=== PATIENT | male | born 1930 | race Caucasian/White ===

== ENCOUNTER 2018-04-16 02:34 | Emergency (ER) | payer OTHER ==
[~2018-04-16] VITALS: Ht 193 cm; Wt 89.8 kg
[~2018-04-16 02:34] MED LIST: ACETAMINOPHEN-1 EAC1 PO; ACETAMINOPHEN325 M1 PO; ACYCLOVIR 800800 M1 PO; ADULT LOW DOSE81 MG PO; AMLODIPINE BESY10 MG PO; BACLOFEN 10 MG10 MG PO; BENAZEPRIL HCL40 MG PO; CIDAFLEX TABLE1 EACH PO; CITRATE OF MAG296 ML PO; COLACE100 MG PO; DESYREL100 MG PO; DESYREL50 MG PO; DIPHENHYDRAMINE25 M3 PO; FERRO-TIME325 MG PO; FINASTERIDE5 MG PO; FLEET ENEMA118 ML RC; FLORINEF ACETA0.1 MG PO; HYTRIN 5 M5 MG/1 CAP PO; LEVOTHYROXINE; MIRALAX; MIRALAX255 GM; MIRALAX255 GM PO; MULTIVITAMINS PO; NABUMETONE 500500 M1 PO; NEURONTIN 300300 M1 PO; PREDNISONE 5 MG5 M1 PO; PROSCAR 5MG TABL5 MG PO; PROZAC 10 MG CA10 MG PO; PROZAC 20 MG20 MG PO; ROBAXIN 750 MG750 M1 PO; SIMVASTATIN20 MG PO; SYNTHROID125 MCG PO; TAMSULOSIN HCL0.4 M1 PO; TRAMADOL 50 MG50 MG PO; TRAZODONE HCL PO; Zicam PO; [UNRECOGNIZED DRUG - OTHER] TOP
[2018-04-16 02:54] LABS: ABSOLUTE NEUTROPHILS 5.6 thou/uL (1.4-8.2); BASOPHILS 1.3 % (0.0-2.0); HEMATOCRIT 53.6 % (42.0-52.0); HEMOGLOBIN 18.1 gm/dL (14.0-18.0); LYMPHOCYTES 16.4 % (24.0-44.0); MCH 32.2 pg (26.0-34.0); MCHC 33.7 g/dL (28.0-37.0); MCV 95.5 fL (80.0-100.0); MONOCYTES 6.9 % (1.0-8.0); PLATELET COUNT 188 thou/uL (150-400); POLYS 74.4 % (36.0-66.0); RBC 5.61 mil/uL (4.50-6.00); RDW 13.5 % (10.5-14.5); WBC 7.5 thou/uL (4.0-11.0)
[2018-04-16 03:01] LABS: CALCIUM 9.2 mg/dL (8.5-10.1); CREATININE 1.3 mg/dL (0.7-1.3); POTASSIUM 3.4 mmol/L (3.5-5.1)
[2018-04-16 03:06] LABS: ALBUMIN 3.8 g/dL (3.4-5.0); DIRECT BILIRUBIN 0.2 mg/dL (<0.1-0.3); TOTAL BILIRUBIN 1.5 mg/dL (<0.1-1.0); TOTAL PROTEIN 7.3 g/dL (6.4-8.2)
[2018-04-16] MEDS ORDERED: AMLODIPINE BESY10 MG PO (03:44)
[2018-04-16] MEDS ORDERED: AVEED750 MG/3 M IM (03:46)
[2018-04-16] MEDS ORDERED: BENADRYL25 MG PO (03:47)
[2018-04-16] MEDS ORDERED: CYMBALTA60 MG PO (03:47)
[2018-04-16 06:35] VITALS: BP 155/87
== END 2018-04-16 06:57 | disposition home or self-care (01) ==
LOC: ER 02:34
PROVIDERS: Emergency Medicine
DX: R11.2 Nausea with vomiting, unspecified (principal); M79.2 Neuralgia and neuritis, unspecified; R10.30 Lower abdominal pain, unspecified; I10 Essential (primary) hypertension; Z79.899 Other long term (current) drug therapy

== ENCOUNTER 2019-05-16 06:51 | Inpatient (IN) | payer OTHER ==
[~2019-05-16] VITALS: Ht 193 cm; Wt 100.2 kg
[2019-05-16] VITALS (31 sets, daily range): BP systolic 112–153; BP diastolic 62–80
[~2019-05-16 06:51] MED LIST changes: +AVEED750 MG/3 M IM; +BENADRYL25 MG PO; +CYMBALTA60 MG PO
[2019-05-16] MEDS ORDERED: NORTRIPTYLINE H25 M3 PO (07:08)
[2019-05-16] MEDS ORDERED: NEURONTIN 300M300 M2 PO (07:09)
[2019-05-16] MEDS ORDERED: PROTONIX40 M2 PO (07:10)
[2019-05-16] MEDS ORDERED: OYSTER SHELL 51 EAC1 PO (07:10)
[2019-05-16] MEDS ORDERED: MUPIROCIN1 GM TOP (07:11)
[2019-05-16 07:18] LABS: URINE BILIRUBIN NEGATIVE (Negative); URINE BLOOD NEGATIVE (Negative); URINE CLARITY CLEAR; URINE COLOR YELLOW; URINE GLUCOSE-RANDOM* NEGATIVE (Negative); URINE KETONES TRACE (Negative); URINE LEUKOCYTES-REFLEX NEGATIVE (Negative); URINE NITRITE-REFLEX NEGATIVE (Negative); URINE PROTEIN (DIPSTICK) NEGATIVE (Negative); URINE SPECIFIC GRAVITY 1.025 (1.005-1.035); URINE UROBILINOGEN 0.2 E.U./dl (0.2-1.0)
[2019-05-16 07:20] LABS: ABSOLUTE NEUTROPHILS 6.5 thou/uL (1.4-8.2); BASOPHILS 0.6 % (0.0-2.0); EOSINOPHILS 0.6 % (0.0-3.0); HEMATOCRIT 53.2 % (42.0-52.0); HEMOGLOBIN 17.7 gm/dL (14.0-18.0); LYMPHOCYTES 12.3 % (24.0-44.0); MCH 32.4 pg (26.0-34.0); MCHC 33.2 g/dL (28.0-37.0); MCV 97.4 fL (80.0-100.0); MONOCYTES 1.5 % (1.0-8.0); PLATELET COUNT 202 thou/uL (150-400); RBC 5.47 mil/uL (4.50-6.00); WBC 7.6 thou/uL (4.0-11.0)
[2019-05-16 07:20] LABS: BE(vivo) 0.2 mmol/L (-2 to +3); HCO3 24.7 mmol/L (22.0-26.0); PCO2 39.8 mmHg (35.0-45.0); PO2 56.7 mmHg (80.0-100.0); pH 7.411 (7.360-7.450); sO2 89.9 % (92.0-98.0)
[2019-05-16 07:25] LABS: ANION GAP 10 mmol/L (7-16); BUN 30 mg/dL (7-18); CALCIUM 9.7 mg/dL (8.5-10.1); CHLORIDE 101 mmol/L (98-107); CO2 30 mmol/L (21-32); CREATININE 2.3 mg/dL (0.7-1.3); GLUCOSE 168 mg/dL (74-106); POTASSIUM 4.1 mmol/L (3.5-5.1); SODIUM 141 mmol/L (136-145)
[2019-05-16 07:35] LABS: ALBUMIN 3.9 g/dL (3.4-5.0); MAGNESIUM 1.6 mg/dL (1.8-2.4); SGOT 21 U/L (15-37); SGPT 25 U/L (30-65); TOTAL BILIRUBIN 1.5 mg/dL (<0.1-1.0); TOTAL PROTEIN 7.3 g/dL (6.4-8.2); TROPONIN-I <0.06 ng/mL (<0.06)
--- NOTE | 2019-05-16 09:42 | NUR ---
pt. aao x's 3. gcs-14. report provided to jackson martinez. transferred pt. to icu bed 247. assisted to icu waiting room per nurse preference. iv fluids maintenance running at 125 ml/hr. bolus infusing also. initial iv antibiotics given.
--- NOTE | 2019-05-16 14:59 | NUR ---
PATIENT ARRIVED FROM ED VIA CART. HE WAS THEN HELPED TO THE ICU BED WHERE HE WAS PLACED ON THE SENIOR TRIAL ATTORNEY. ADMISSION WAS PERFORMED. ANTIBIOTICS WERE INIATED. SEPSIS SCREENING PERFORMED. NURSE TALKED WITH DR. TANG, DR. BOLAÑOS, AND DR. DELGADO ABOUT THE POSITIVE SEPSIS SCREENING. PATIENT NOT ON SEPSIS PROTOCOL AT THIS TIME. IV ANTIBIOTICS ORDERED BY PRIMARY, THEN SWITCHED BY ID. LABS NOTED AND CALLED TO PRIMARY PHYSICIAN, WELL DR. BOLAÑOS. PATIENT TROPONIN LEVEL, MAG LEVEL, AND TSH/FREE T4 LEVEL CALLED TO PRIMARY. PATIENT DENIES PAIN. FAMILY AT BEDSIDE. NURSE TO CONTINUE TO MONITOR PATIENT STATUS. PATIENT SLOWLY PROGRESSING TOWARDS PLAN OF CARE. HOURLY URINE OUTPUT NOTED.
--- NOTE | 2019-05-16 18:49 | NUR ---
ASSUMED CARE OF PATIENT AT 1430. PT REMIANS ON 8L NC. RESTING COMFORTABLY IN BED THROUGH OUT THE SHIFT. CONSULT FOR SURGERY PLACED. DR. SILVA SAID THEY WILL SEE PATIENT. NO COMPLAINTS OF NAUSEA.
[2019-05-17] VITALS (26 sets, daily range): BP systolic 128–178; BP diastolic 54–90
--- NOTE | 2019-05-17 02:50 | NUR ---
HALDOL 2.5 MG IV GIVEN FOR RESTLESSNESS PER ORDER OVERHEAD FOREMAN Evelyn BUTTS
[2019-05-17 05:18] LABS: HEMATOCRIT 46.6 % (42.0-52.0); MCH 32.1 pg (26.0-34.0); MCHC 32.6 g/dL (28.0-37.0); MCV 98.4 fL (80.0-100.0); PLATELET COUNT 142 thou/uL (150-400); RBC 4.74 mil/uL (4.50-6.00); RDW 13.9 % (10.5-14.5); WBC 8.8 thou/uL (4.0-11.0)
[2019-05-17 05:19] LABS: HEMOGLOBIN 15.2 gm/dL (14.0-18.0)
[2019-05-17 05:41] LABS: ALBUMIN 2.9 g/dL (3.4-5.0); ANION GAP 10 mmol/L (7-16); BUN 31 mg/dL (7-18); CHLORIDE 106 mmol/L (98-107); CO2 28 mmol/L (21-32); CREATININE 1.8 mg/dL (0.7-1.3); GLUCOSE 136 mg/dL (74-106); POTASSIUM 4.3 mmol/L (3.5-5.1); SGOT 22 U/L (15-37); SGPT 19 U/L (30-65); SODIUM 144 mmol/L (136-145); TOTAL BILIRUBIN 1.3 mg/dL (<0.1-1.0); TOTAL PROTEIN 6.3 g/dL (6.4-8.2); TROPONIN-I <0.06 ng/mL (<0.06)
[2019-05-17 05:44] LABS: CALCIUM 7.6 mg/dL (8.5-10.1)
[2019-05-17 05:54] LABS: ABSOLUTE NEUTROPHILS 7.1 thou/uL (1.4-8.2); METAMYELOCYTES 6 %
--- NOTE | 2019-05-17 06:00 | NUR ---
PT IS CALM AND COOPERATIVE ALERT AND ORIENTED THIS AM. HAD ONE SOFT BROWN STOOL TONIGHT. 1000 CC UO THIS SHIFT. UP TO CHAIR X 2 TONIGHT. ABD IS MORE DISDTENDED THIS AM. DR LEMONS IN TO SEE PT. NO SURGERY REQUIRED at this time. WILL CONT TO MONITOR.
--- NOTE | 2019-05-17 16:24 | NUR ---
Case opened to follow for dc planning. Pt is currently in ICU. Respiratory Tech visited with the pt and his and dtr in [facility] at bedside. The pt and his report that they live in an indep living apt at [facility]. He is normally indep in the apt and he sets up his 's meds as well as his own. They have had hh per [facility] and would use them again if needed. He is familiar with [facility] as his was there. He reports he would not want to go there for SNF. Will ask for therapy evals. He does use a rwalker for long hallways or outtings. He reports his pcp is Dr. Sue Johnson. Cm role introduced. Will follow along for possible hh referral at sc.
--- NOTE | 2019-05-17 18:37 | NUR ---
UP IN CHAIR TODAY FOR SEVERAL HOURS, AMBULATED AROUND BED WITH ONE ASSIST, THEN BACK TO BED. SUPPOSITORY GIVEN, SEE MARS. NG 18FR PLACED IN R NARE ON FIRST ATTEMPT, POSITIVE AIR BOLUS, LIGHT GREEN PALE DRAINAGE, LWIS. KUB CONFIRMED NG PLACEMENT. UP TO BSC WITH ONE ASSIST, PASSED FLATUS AND HAD SCANT BROWN STOOL. AND JIKWAXAQ-RU-[id number] PRESENT. REQUESTED TO SPEAK WITH DR. WERNER. NOTIFED THEN ARRIVED SHORTLY TO UPDATED THEM ON PT CONDITION, INFORMED OF CODE STATUS OPTIONS.
--- NOTE | 2019-05-17 23:32 | NUR ---
ASSUMED CARE AT 1900. PT ALERT BUT CONFUSED/FORGETFUL. NG TUBE IN PLACE PULLING DARK GREEN LIQUID, HANSON DRAINING CLEAR YELLOW URINE. PT PLAYING WITH VARIOUS VS TUBING, TAKING O2 OFF DIFFICULT TO REDIRECT/REORIENT. ABOUT 2099 PT PULLED HIS NG TUBE OUT; WOULD NOT LEAVE O2 ON, O2 SAT DROPPING TO 88% ON RA. OBTAINED ORDER FOR HALDOL AND RESTRAINTS. PLACED IN RESTRAINTS, GAVE HALDOL, BUT PT STILL AGITATED AND PULLING AWAY, UNABLE TO REPLACE NG. OBTAINED ORDER FOR ANOTHER DOSE OF HALDOL. PT MORE CALM, ABLE TO PLACE NG; INITIAL LENGTH AT 66 CM, OBTAINED STAT KUB TO CONFIRM PLACEMENT. WILL CONTINUE TO MONITOR.
[2019-05-18] VITALS (19 sets, daily range): BP systolic 146–179; BP diastolic 77–104
[2019-05-18 09:11] LABS: HEMATOCRIT 44.6 % (42.0-52.0); HEMOGLOBIN 14.5 gm/dL (14.0-18.0); MCH 31.5 pg (26.0-34.0); MCHC 32.5 g/dL (28.0-37.0); MCV 96.9 fL (80.0-100.0); PLATELET COUNT 150 thou/uL (150-400); RBC 4.61 mil/uL (4.50-6.00); RDW 13.6 % (10.5-14.5); WBC 13.4 thou/uL (4.0-11.0)
[2019-05-18 09:32] LABS: CALCIUM 8.2 mg/dL (8.5-10.1); CREATININE 1.1 mg/dL (0.7-1.3); MAGNESIUM 1.8 mg/dL (1.8-2.4); PHOSPHORUS 1.9 mg/dL (2.5-4.9); POTASSIUM 3.5 mmol/L (3.5-5.1); TOTAL BILIRUBIN 1.1 mg/dL (<0.1-1.0); TOTAL PROTEIN 6.7 g/dL (6.4-8.2)
--- NOTE | 2019-05-18 10:09 | NUR ---
Nutrition: Pt admit with N/V x 24 hrs prior to admit, CAP, AIRAM, dehydration. Has NGT in place for decompression for PSBO. NPO day 3.. No recent weight loss, rather current weight up 20# from weight a year ago. Appears well nourished otherwise. Nsg voiced concern for possible nutrition support need in rounds. Due to no malnutrition identified, No nutrition support recommended unless NPO expected for a total of [address] will followup for timely diet advance next week.
--- NOTE | 2019-05-18 13:29 | NUR ---
Assumed care at 0700. PT appeared A&Ox4. Wrist restraints were present but not tied to the bed. Nurse took off the restraints completely as PT was cooperative and oriented. called and nurse spoke with her about PT's plan of care today. She verbalized understanding. NG tube was flushed and auscultated for placement. Appeared patent and draining reddish brown drainage. Provider notified. Dr. Ordonez, Kodi Way, and Bryan rounded on PT today. Diop is present as PT has hx of bladder cancer and retention. Urine is clear yellow and is draining well. New IV was inserted in the right lower forearm as more IV medications were ordered. PT tolerated procedure well. IV dressing was changed on the peripheral in the right AC space. IV appears patent. PT is currently sitting up in bed watching television. is visiting. Fall precautions in place. Nurse will continue to monitor.
[2019-05-18 13:38] LABS: ABSOLUTE NEUTROPHILS 12.1 thou/uL (1.4-8.2); ANISOCYTOSIS SLIGHT; METAMYELOCYTES 2 %
[2019-05-18 14:30] LABS: HEMATOCRIT 44.7 % (42.0-52.0); HEMOGLOBIN 14.8 gm/dL (14.0-18.0)
--- NOTE | 2019-05-18 14:58 | EKG ---
[address] [address] ELECTROCARDIOGRAM REPORT Name: NATHALIE BROWN Room #: 247-P ADM IN M.R.#: [id number] Admission: 05/16/19 Attend Phys: Greg Hendrickson MD Discharge: Date of : [birth year] Report #: [id number] THIS REPORT FOR: //name// [facility] ED Test Date: 2019-05-16 Test Time: 06:54:39 Pat Name: NATHALIE BROWN Department: Room: 247 Gender: M Shoulder Pad Molder: [facility] : 1930 Requested By: Greg Hendrickson Order Number: [id number] MD: Jayden Ferro Measurements Intervals [place] Rate: 137 P: AL: QRS: -16 QRSD: 153 T: 89 QT: 348 QTc: 526 Interpretive Statements Wide-QRS tachycardia Left bundle branch block Compared to ECG 06/10/2015 17:32:30 Left bundle-branch block now present Sinus rhythm no longer present ST (T wave) deviation no longer present Electronically Signed On 05-18-2019 14:57:37 DEHAIRER by Jayden Ferro [email or web address] <ELECTRONICALLY SIGNED> By: Jayden Ferro MD 05/18/19 1457 0654 [id number] Jayden Ferro MD /EPI
--- NOTE | 2019-05-18 14:59 | EKG ---
[address] [address] ELECTROCARDIOGRAM REPORT Name: NATHALIE BROWN Room #: 247-P ADM IN M.R.#: [id number] Admission: 05/16/19 Attend Phys: Greg Hendrickson MD Discharge: Date of : [birth year] Report #: [id number] THIS REPORT FOR: //name// [facility] Test Date: 2019-05-16 Test Time: 15:37:49 Pat Name: NATHALIE BROWN Department: Room: 247 Gender: M Grab Hooker: Omar GAYTAN : 1930 Requested By: Greg Hendrickson Order Number: [id number] MD: Jayden Ferro Measurements Intervals [place] Rate: 101 P: 45 [place]: 238 QRS: -11 QRSD: 98 T: 35 QT: 342 QTc: 444 Interpretive Statements Sinus tachycardia Prolonged [place] interval Probable left atrial enlargement Borderline T abnormalities, anterior leads Compared to ECG 06/10/2015 17:32:30 Electronically Signed On 05-18-2019 14:59:24 FURNITURE DELIVERY DRIVER by Jayden Ferro [email or web address] <ELECTRONICALLY SIGNED> By: Jayden Ferro MD 05/18/19 1459 153 36 Jayden Ferro MD /SIMIN
--- NOTE | 2019-05-18 19:25 | NUR ---
IN AFTERNOON, UP IN CHAIR AFTER BRIEF AMBULATION WITH PHYSICAL THERAPY. PT REPOSITIONED IN CHAIR FOR HIS COMFORT, THEN HE AMBULATED WITH WALKER AND 2 RN ASSIST WITH USE OF GAIT BELT. HE AMBULATED AROUND THE ICU DESK IN ICU X 2, THEN BACK TO BED. DOZED OFF TO SLEEP. AT 1805, REPORT GIVEN TO RUIZ MERCADO. PT TRANSFERRED TO TELE RM #351 PER WHEELCHAIR WITH CLOTHING AND TEXTILES TEACHER, 4L/NC AND ALL HIS BELONGINGS INCLUDING CELL PHONE AND POULTRY FARMER EGG. CALLED KIMANI, TO NOTIFY HER OF PT TRANSFER.
--- NOTE | 2019-05-18 19:56 | NUR ---
Reviewed and agree with Kiara Salguero RNleisure studies professor.
[2019-05-18 20:37] LABS: PHOSPHORUS 2.6 mg/dL (2.5-4.9); POTASSIUM 3.5 mmol/L (3.5-5.1)
[2019-05-19 00:14] VITALS: BP 165/87
--- NOTE | 2019-05-19 01:42 | NUR ---
pt had a moderate bm tonight, that was formed. he has not had any drainage from his low intermittent suction until 0100. pt pulled out his ng tune stating that he was ready to get his shower for the morning. redirected him and spoke with interventional nurse. ordered to leave out the ng tube, and give him haldol with a sip of water P.o. pt did swollowed the pill with ease and has not complained of any discomfort. he denies nausea or fullness. resting more quietly with ng out.
[2019-05-19 03:15] VITALS: BP 168/96
[2019-05-19 04:14] LABS: CREATININE 0.9 mg/dL (0.7-1.3); PHOSPHORUS 1.7 mg/dL (2.5-4.9); POTASSIUM 3.2 mmol/L (3.5-5.1)
--- NOTE | 2019-05-19 06:34 | NUR ---
CONTINUES TO PULL AT LINES AND TUBES HAD TO REPLACE THE SOFT BILATERAL WRIST RESTRAINTS. HE PULLED ON HIS URINARY CATHETER AND CAUSED DARK RED URINE. FLUSHED CATHETER. URINE DRAINING IN ADEQUATE AMOUNTS.
[2019-05-19 07:26] VITALS: BP 174/90
--- NOTE | 2019-05-19 08:58 | HC ---
[facility] [place] [address] CONSULTATION Name: NATHALIE BROWN Room #: 351-P ADM IN M.R.#: [id number] Admission: 05/16/19 Attend Phys: Greg Hendrickson MD Discharge: Date of : [birth year] Report #: [id number] THIS REPORT FOR: //name// CC: Nikko Hendrickson DATE OF SERVICE: 05/17/2019 ATTENDING PHYSICIAN: Dr. Hendrickson. CONSULTING PHYSICIAN: Dr. Steward. REASON FOR CONSULTATION: Possible small-bowel obstruction. ASSESSMENT: Possible small-bowel obstruction. RECOMMENDATIONS: 1. Thank you for the consultation. I will follow along. 2. This appears to be more of an ileus. The patient has diffuse small bowel distention on CT scan. 2. He has had return of bowel function overnight; however, he does have a very significant stomach and small bowel distention. Therefore, would continue to recommend bowel rest. 3. Suspect ileus due in part to suspected pneumonia as well as many other comorbidities. 4. Serial abdominal exams. 5. I will follow closely until resolution of abdominal symptoms. HISTORY OF PRESENT ILLNESS: The patient is a very pleasant 89-year-old gentleman recently hospitalized with pneumonia, who presents to the [facility] with worsening shortness of breath, generalized weakness, and altered mental status. He was recently hospitalized at another facility with aspiration pneumonia. While in the ER, a guided CT scan of the abdomen that demonstrated possible small-bowel obstruction. The patient did have a bowel movement overnight. He has not vomited. The bowel movement was moderate in volume. PAST MEDICAL HISTORY: 1. Hypertension. 2. Hypopituitarism. 3. Hypothyroidism. 4. Benign prostatic hypertrophy. 5. On Prednisone 5 mg daily. 6. GERD. PAST SURGICAL HISTORY: 1. Denies abdominal procedures. [facility] [address] [place] [address] CONSULTATION Name: NATHALIE BROWN Room #: 351-P [facility] IN M.R.#: [id number] Admission: 05/16/19 Attend Phys: Greg Hendrickson MD Discharge: Date of : [birth year] Report #: [id number] 2. Back surgery, laminectomy, on 01/06/2013. SOCIAL HISTORY: Denies use of alcohol, tobacco, or recreational drugs. FAMILY HISTORY: Unobtainable. REVIEW OF SYSTEMS: CONSTITUTIONAL: No fever. No chills. HEENT: Denies blurring of vision, double vision, headaches, hearing loss, sinus drainage or sore throat. Denies blurring of vision, double vision, headaches, hearing loss, sinus drainage or sore throat. CARDIOVASCULAR: Denies chest pain, palpitations, orthopnea or paroxysmal nocturnal dyspnea. RESPIRATORY: See above and below. GASTROINTESTINAL: See above and below. GENITOURINARY: Denies dysuria or hematuria or kidney stones. No urinary frequency, urgency or incontinence. Denies dysuria or hematuria or kidney stones. No urinary frequency, urgency or incontinence. MUSCULOSKELETAL: No joint pain. No muscle pain. NEUROLOGICAL: Denies tremor, stroke or seizure. Denies tremor, stroke or seizure. HEMATOLOGIC / LYMPHATICS: Denies easy bruising, easy bleeding or enlarged lymph nodes. SKIN: No rash or ulceration. ENDOCRINE: No heat or cold intolerance PSYCHIATRIC: Denies depression, anxiety, or schizophrenia. PHYSICAL EXAMINATION: VITAL SIGNS: Temperature 36.7, pulse 90, respiratory rate 14, blood pressure 131/78, pulse ox 95%. GENERAL: No apparent distress, alert and oriented x3. HEENT: PERRLA, EOMI, MMM, NCAT NECK: Supple. No LAD CARDIOVASCULAR: Regular rhythm and rate. Hemodynamically stable. Normal capillary refill. Regular rhythm and rate. Hemodynamically stable. Normal capillary refill. PULMONARY: Nonlabored. Clear to auscultation bilaterally ABDOMEN: Soft, very distended, no tenderness to palpation, no guarding/rebound/rigidity. No hernias appreciated. No surgical incisions appreciated. EXTREMITIES: Calves soft, nontender, no edema. SKIN: No rashes or bruises. PSYCHIATRIC: Normal mood and affect Normal mood and affect NEUROLOGICAL: Grossly intact. CN II-XII grossly intact. MUSCULOSKELETAL: 5/5 strength in upper extremities and lower extremities bilaterally [address] [address] CONSULTATION Name: NATHALIE BROWN ARIS Room #: 351-P ADM IN M.R.#: [id number] Admission: 05/16/19 Attend Phys: Greg Hendrickson MD Discharge: Date of : [birth year] Report #: [id number] LYMPHATICS: No cervical, inguinal, or supraclavicular lymphadenopathy. LABORATORY DATA: White blood count 8.8, hemoglobin 15.2, hematocrit 46.6, platelets 142. Sodium 144, potassium 4.3, creatinine 1.8, and glucose 136. IMAGING: Chest x-ray, impression: 1. Right lateral mid lung infiltrate consistent with focal pneumonitis/pneumonia within the inferior right upper lobe. No evidence of pneumothorax or significant pleural effusion. CT abdomen and pelvis, impression: 1. CT findings consistent with mild or at least partial small-bowel obstruction. No evidence of focal inflammatory mass, ascites or pneumoperitoneum or hemoperitoneum. 2. Patchy bibasilar dependent atelectasis/pneumonitis. 3. Coronary artery calcification. <ELECTRONICALLY SIGNED> By: Ajay Steward MD 05/19/19 0858 0828 0919 Ajay Steward MD /nt
[2019-05-19 11:23] VITALS: BP 164/76
[2019-05-19 15:04] LABS: HEMATOCRIT 47.3 % (42.0-52.0); HEMOGLOBIN 15.6 gm/dL (14.0-18.0)
[2019-05-19 15:24] VITALS: BP 167/73
--- NOTE | 2019-05-19 18:45 | NUR ---
RESTRAINTS TAKEN OFF AT 0800 THIS AM PATIENT WAS CALM AND COOPERATIVE WITH CARE. HE HAS BEEN THAT WAY ALL DAY. OCCASIONALLY HE WILL BE CONFUSED AND PULL ON PAPER BAG INSPECTOR BUT EASILY REDIRECTED. FAMILY HERE ALL DAY. WILL CONT WITH PLAN OF CARE.
[2019-05-19 19:25] VITALS: BP 151/73
[2019-05-20 03:15] VITALS: BP 171/93
--- NOTE | 2019-05-20 03:47 | NUR ---
PATIENT IS SLOWLY PROGRESSING IN HIS CARE PLAN. VITAL SIGNS STABLE WITH PATIENT HAVING NO COMPLAINTS OF PAIN OR NAUSEA. BLOOD PRESSURE ELEVATED WITH NURSE TREATING EFFECTIVELY TO PROVIDERS ORDER. PATIENT IS ALERT TIMES THREE AND IS PLEASANTLY CONFUSED AND FORGETFUL. HE HAS RESPONDED WELL TO NURSE RE DIRECTING HIM FROM PULLING AT CATHETER. ADEQUATE OUTPUT THROUGH HANSON WHICH HAS CLEARED UP SINCE EARLY SHIFT FLUSHES. PATIENT WAS ABLE TO AMBULATE THE HALLWAYS WITH ASSISTANCE INCIDENT FREE. BREATHING STABLE ON LOW LEVEL OXYGEN EVIDENCED BY ASSESSMENT AND SPOT OXYGENATION CHECKS. CONTINUE PLAN OF CARE.
[2019-05-20 06:55] VITALS: BP 176/89
[2019-05-20 09:16] LABS: HEMATOCRIT 46.6 % (42.0-52.0); HEMOGLOBIN 15.6 gm/dL (14.0-18.0); MCHC 33.4 g/dL (28.0-37.0); MCV 95.9 fL (80.0-100.0); PLATELET COUNT 145 thou/uL (150-400); RBC 4.85 mil/uL (4.50-6.00); RDW 13.7 % (10.5-14.5); WBC 9.7 thou/uL (4.0-11.0)
[2019-05-20 09:29] LABS: ALBUMIN 2.9 g/dL (3.4-5.0); CALCIUM 8.3 mg/dL (8.5-10.1); CREATININE 0.9 mg/dL (0.7-1.3); MAGNESIUM 2.3 mg/dL (1.8-2.4); POTASSIUM 3.2 mmol/L (3.5-5.1); TOTAL BILIRUBIN 0.9 mg/dL (<0.1-1.0); TOTAL PROTEIN 6.4 g/dL (6.4-8.2)
[2019-05-20 09:36] LABS: ABSOLUTE NEUTROPHILS 9.2 thou/uL (1.4-8.2); ANISOCYTOSIS 1+
[2019-05-20 09:37] LABS: LARGE PLATELETS FEW
[2019-05-20 10:56] VITALS: BP 179/100
--- NOTE | 2019-05-20 12:43 | HC ---
[facility] [place] [address] CONSULTATION Name: NATHALIE GRIFFITH Room #: 351-P [facility] IN M.R.#: [id number] Admission: 05/16/19 Attend Phys: Greg Hendrickson MD Discharge: Date of : [birth year] Report #: [id number] THIS REPORT FOR: //name// CC: Nikko Hendrickson DATE OF SERVICE: 05/16/2019 CONSULTATION: Infectious diseases. HISTORY OF PRESENT ILLNESS: Ruben Griffith is an 89-year-old gentleman who has been ill for about 2 days. At home, he was becoming weaker. During the night, he was noted to have fever with nausea, vomiting and then became dyspneic and confused. The patient was brought into the hospital and was noted to have a fever, bowel obstruction and infiltrates. The patient was started on broad-spectrum antibiotic therapy. Infectious Disease consultation was requested. PAST MEDICAL HISTORY: Significant for hypertension, bladder cancer, prostatic hypertrophy, renal insufficiency, pneumonia, hypothyroidism, hypopituitarism. PAST SURGICAL HISTORY: Includes appendectomy and laminectomy. CURRENT MEDICATION RECONCILIATION: Includes doses of vancomycin, azithromycin and Zosyn in the ER. He is now on meropenem. Other medications include Tylenol p.r.n., DuoNeb inhalation. Enteric coated aspirin 81 mg daily, Lovenox 30 mg daily, fentanyl push p.r.n., tamsulosin 0.4 mg daily, Neurontin 600 mg t.i.d., Solu-Cortef 100 mg IV every 8 hours, Synthroid 125 mcg daily, meropenem 1 g q.12 hours, nortriptyline 20 mg b.i.d., amlodipine 5 mg daily, Zofran 4 mg p.r.n., pantoprazole 40 mg b.i.d., Proscar 5 mg at bedtime. ALLERGIES: The patient has no documented drug allergies. FAMILY HISTORY: Noncontributory. SOCIAL HISTORY: The patient is and lives at home with his . 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 He did smoke cigarettes in the distant past, but quit 60 years ago. No history of alcohol nor drugs. REVIEW OF SYSTEMS: At this time, the patient says he feels pretty good. Denies any pain. Denies any head or neck complaints. He does not feel confused or like his mental status is depressed. He denies cough, chest pain, shortness of breath, dyspnea. Denies angina, syncope, palpitation. He denies nausea and vomiting, although he did apparently have several emesis during the night. He denies abdominal pain. He says his last bowel movement was yesterday and he [address] [address] CONSULTATION Name: NATHALIE GRIFFITH Room #: 351-P [facility] IN M.R.#: [id number] Admission: 05/16/19 Attend Phys: Greg Hendrickson MD Discharge: Date of : [birth year]/12/[birth year] Report #: [id number] thinks it was normal. Denies any urinary complaints, although he has a Diop catheter currently. Denies pain in his extremities. PHYSICAL EXAMINATION: GENERAL: The patient appears his stated age, weak, ill, but comfortable, not in any distress. VITAL SIGNS: Show temperature was measured in the ER at 102.4. Blood pressure 121/66. SKIN: Somewhat pale without rash, lesion or exanthem. ENT: Negative. There is a small 5 mm crust above his right eye consistent with a fairly recent trauma. Oral cavity is normal. NECK: Supple. NEUROLOGIC: Mentally, the patient is awake and answers questions. He knows he is in the hospital. He knows that Nathalie Bowling is president and he does not like him. He did not realize today was or he could not name the hospital. HEART: Sounds S1, S2. LUNGS: Clear to anterior auscultation. ABDOMEN: Distended, but soft without tenderness nor rebound. Bowel sounds are hypoactive. EXTREMITIES: Unremarkable. LABORATORY DATA: White count is 7.6, hemoglobin 17.7, platelet 202,000. Electrolytes normal, BUN 30, creatinine 2.3. Blood gases on 15 liter nonrebreather mask this morning showed pH of 7.41, pO2 of 57, pCO2 of 39. Now on 10 liters of nasal cannula, his oxygen saturation is 96%. The lactate was initially 4.3 and 3.07 on followup. Procalcitonin elevated at 0.18. BNP, troponin, T4 levels were normal. TSH was low. Imaging studies showed that the chest x-ray demonstrated a right upper lobe and a right mid infiltrate. CT of the abdomen confirmed atelectasis or infiltrates in both bases. There is diffuse calcification of multiple arteries including coronary arteries. There was mild bilateral perinephric stranding. The gut suggested a small-bowel obstruction. Urinalysis was negative. ASSESSMENT AND PLAN: In summary, we have an elderly gentleman who was usually in pretty good health, has a few days of being ill and he presents with fever, nausea, vomiting, possible bowel obstruction and infiltrates on his chest x-ray. I suspect that the patient probably has pneumonia or possibly aspiration related to some underlying GI disease. I suggest we treat for possible abdominal sepsis or aspiration pneumonia. We can do this with meropenem as a single drug. Dose is adjusted for his creatinine elevation. We need to check a random cortisol from when the patient came in the hospital. He currently is on cortisone support. We can check urinary antigens. There is no sputum for culture, but should the patient [facility] [address] [place] [address] CONSULTATION Name: NATHALIE GRIFFITH ARIS Room #: 351-P ADM IN M.R.#: [id number] Admission: 05/16/19 Attend Phys: Greg Hendrickson MD Discharge: Date of : [birth year]12/[birth year] Report #: [id number] develop a productive cough for this would be helpful. Tomorrow, we will want to do followup CBC, electrolytes, a chest x-ray and abdominal film. I think it may be worthwhile to have a surgeon evaluate and comment on the abdominal distention. The patient may potentially benefit from an NG tube, particularly if he develops for nausea. For now, we will continue the patient on the meropenem and supportive therapy. I appreciate the opportunity of input in the care of this pleasant family. Dr. Miguel Ángel Mohamud will return tomorrow for a further infectious disease followup. <ELECTRONICALLY SIGNED> By: Escobar Witt MD 05/20/19 1243 1250 1325 Escobar Witt MD /nt
[2019-05-20 13:41] LABS: HEMATOCRIT 45.7 % (42.0-52.0)
[2019-05-20 15:24] VITALS: BP 184/99
[2019-05-20 16:38] VITALS: BP 177/91
[2019-05-20 19:24] VITALS: BP 171/84
--- NOTE | 2019-05-20 19:33 | NUR ---
pt is A&OX2 ( person and place), but pt is forgetful, pt is continuing NPO and PPN at 80ml/hr, pt is is on 02 3L/min/nc, pt's vs and o2sat are stable, pt has low Potassium replacement,
[2019-05-21 03:00] VITALS: BP 186/109
[2019-05-21 05:53] LABS: CALCIUM 8.2 mg/dL (8.5-10.1); CREATININE 0.8 mg/dL (0.7-1.3); MAGNESIUM 2.2 mg/dL (1.8-2.4); PHOSPHORUS 2.7 mg/dL (2.5-4.9); POTASSIUM 3.4 mmol/L (3.5-5.1)
[2019-05-21 07:42] VITALS: BP 184/100
--- NOTE | 2019-05-21 08:49 | NUR ---
1) If unable to progress in diet stages in the next 24-48 hrs based on bowel distention, recommend change to standard TPN. 2) If oral intake not yet indicated, consider change to standard TPN at goal rate of 90 ml/hr w/ 2.9% lipids to help meet nutrition needs. DIR= 2.24 mg/kg/min (safe per [facility]EN). 3) If inflammation a concern, recommend standard TPN w/ NO lipids x 1 wk and slightly higher goal rate at 100 ml/hr. Safe DIR = 2.49 mg/kg/min.
[2019-05-21 14:00] VITALS: BP 177/90
[2019-05-21 15:33] VITALS: BP 200/105
--- NOTE | 2019-05-21 15:43 | NUR ---
BILLY reviewed chart and spoke with nursing and attending physician. Pt was transferred to 3W from ICU over the weekend and is progressing towards goals for discharge. Consult for [facility] ordered. BILLY discussed case with [facility] music rehabilitation therapist, who states they are able to accept pt when he is medically stable. BILLY met with pt, and son at bedside to provide update. All appear to be agreeable with plan to [facility]. Pt's states that she would like to hear more about [facility] tomorrow. BILLY requested [facility] music rehabilitation therapist to meet with pt and tomorrow. BILLY is following to assist as needed with discharge planning.
[2019-05-21 16:08] VITALS: BP 180/83
--- NOTE | 2019-05-21 16:51 | NUR ---
PT is A&OX2 ( PERSON AND PLACE), PT IS CONTIUING PPN @80ML/HR AND NPO , PT'S ABD IS DISTENDED , BUT SOFT , PT DENIES N/V AND ABD PAIN, PT HAS DONEX-RAY SMALL BOWEL SERIES , RN HAS CALLED DR TO REPORT ABNORMAL LAB RESULTS AND HIGH BP , NEW ORDER RECEIVED, PT WILL TRANSFER TO 4W ROOM 451 SOON ORDER.RN WILL GIVE BEDSIDE REPORT .
[2019-05-21 20:26] VITALS: BP 160/90
[2019-05-22 00:11] VITALS: BP 169/96
--- NOTE | 2019-05-22 03:38 | NUR ---
PT IS A TRANSFER FROM WITH C/O PNEUMONIA.PT IS A/O X3 AND CONFUSE AT TIMES.PT IS UP WITH X1 ASIST.PT HAS A HANSON CATHETER IN PLACE.PT IS NPO WITH ICE CHIPS AND SIPS OF FLUID WITH MEDS.PT BECAME CONFUSED THIS MORNING AND PULLED OUT IV TWICE AND TRYING PULLING OUT CATHTER.NEW IV ACCESS ON LT FA WITH PPN AT 80 CC/HR.WILL CONTINUE POC TILL EOS
[2019-05-22 07:25] VITALS: BP 178/88
[2019-05-22 10:03] LABS: HEMATOCRIT 48.2 % (42.0-52.0); HEMOGLOBIN 15.7 gm/dL (14.0-18.0); MCH 31.6 pg (26.0-34.0); MCHC 32.7 g/dL (28.0-37.0); MCV 96.7 fL (80.0-100.0); RBC 4.98 mil/uL (4.50-6.00); RDW 14.2 % (10.5-14.5); WBC 10.3 thou/uL (4.0-11.0)
[2019-05-22 10:17] LABS: CALCIUM 8.2 mg/dL (8.5-10.1); CREATININE 0.8 mg/dL (0.7-1.3); POTASSIUM 3.3 mmol/L (3.5-5.1)
[2019-05-22 14:15] VITALS: BP 174/97
--- NOTE | 2019-05-22 15:27 | NUR ---
CM MET WITH PT AND FAMILY AT BEDSIDE THIS DAY THE ARE AWARE THAT [facility] IS FOLLOWING AND THAT WE ANTICAPTE DC LIKELY TUESDAY. CM TO FOLLOW INDICATED WITH DC PLANNING.
--- NOTE | 2019-05-22 16:21 | NUR ---
Assumed patient care at 0715. Vital signs have been stable. Patient was advanced to a Clear Liquid Diet. Patient has been enjoying jello, Sprite, broth and ice chips. Patient has not had a bowel movement yet today. He continues on PPN and IV Antibiotics. Oxygen is at 3 Liters per nasal cannula. Family has been at bedside throughout the day. Patient has not displayed any confusion, has not been pulling at his kidd and/or IV. He has good urinary output in his catheter. Will continue to monitor.
[2019-05-22 19:08] VITALS: BP 168/86
--- NOTE | 2019-05-23 05:36 | NUR ---
Pt. rested quietly at intervals during the night when checked on during frequent rounds. He has been alert and oriented, but forgetful. Pt. attempted to get up out of bed times two without calling for assistance. Bed alarm is on. He has been taking po fluids well without difficulty. No BM this shift.
[2019-05-23 06:18] LABS: HEMATOCRIT 48.5 % (42.0-52.0); HEMOGLOBIN 15.7 gm/dL (14.0-18.0); MCH 32.2 pg (26.0-34.0); MCHC 32.4 g/dL (28.0-37.0); MCV 99.6 fL (80.0-100.0); RBC 4.87 mil/uL (4.50-6.00); RDW 14.2 % (10.5-14.5); WBC 9.2 thou/uL (4.0-11.0)
[2019-05-23 06:36] LABS: ALBUMIN 2.6 g/dL (3.4-5.0); CALCIUM 8.5 mg/dL (8.5-10.1); CREATININE 0.8 mg/dL (0.7-1.3); POTASSIUM 4.1 mmol/L (3.5-5.1); TOTAL BILIRUBIN 2.1 mg/dL (<0.1-1.0); TOTAL PROTEIN 5.9 g/dL (6.4-8.2)
[2019-05-23 08:00] VITALS: BP 173/87
[2019-05-23 15:00] VITALS: BP 161/71
--- NOTE | 2019-05-23 17:04 | NUR ---
Assumed pt care this am, pt is forgetful and needs to be reminded of the procedure cori (EGD), consnt has been signed family (son and ) came to visit and ia aware, Pt has a BM today after suppository was given. PPN and IV medication is tolerated well, clear liquid diet observed. To be NPO post midnight tonight for the procedure cori am. 3L O2 via NC on, stayed on the recliner in the afternoon. POC follwed, no signs or verbalizations of distrtess have been noted.
[2019-05-23 19:08] VITALS: BP 159/81
--- NOTE | 2019-05-23 22:30 | NUR ---
Pt. peripheral iv to left forarm infiltrated. Many attempts tried to restart another peripheral iv without sucess by this nurse and three others. commissary production supervisor was able to start a peripheral line, but fear that it would not hold overnight with ppn and then iv antibiotics too running. Suggest that the HYDROSTATIC TESTER be called and notified. Called and spoke to Key SALINAS about this and she gave orders to hold ppn for now. May consider talking to the in am about a picc line.
[2019-05-24 05:26] LABS: HEMATOCRIT 44.9 % (42.0-52.0); MCHC 33.3 g/dL (28.0-37.0); MCV 95.9 fL (80.0-100.0); RBC 4.68 mil/uL (4.50-6.00); RDW 13.7 % (10.5-14.5); WBC 9.9 thou/uL (4.0-11.0)
--- NOTE | 2019-05-24 05:46 | NUR ---
Pt. rested quietly at intervals during the night when checked on during frequent rounds. He offers no complaints of pain. Bed alarm is on.
[2019-05-24 06:06] LABS: ALBUMIN 2.3 g/dL (3.4-5.0); CALCIUM 7.9 mg/dL (8.5-10.1); CREATININE 0.9 mg/dL (0.7-1.3); DIRECT BILIRUBIN 0.2 mg/dL (<0.1-0.2); POTASSIUM 3.4 mmol/L (3.5-5.1); TOTAL BILIRUBIN 1.6 mg/dL (<0.1-1.0); TOTAL PROTEIN 5.3 g/dL (6.4-8.2)
[2019-05-24 07:39] VITALS: BP 144/62
[2019-05-24] MEDS ORDERED: LOPRESSOR25 PO (12:33)
[2019-05-24] MEDS ORDERED: IPRAT-ALBUT 0.5-3 ML INH (12:33)
[2019-05-24] MEDS ORDERED: NORVASC10 MG PO (12:34)
[2019-05-24] MEDS ORDERED: OLANZAPINE2.5 MG PO (12:34)
[2019-05-24] MEDS ORDERED: BISACODYL10 MG RECTAL (12:34)
[2019-05-24] MEDS ORDERED: SENNA-TIME S T1 EACH PO (12:35)
[2019-05-24] MEDS ORDERED: MIRALAX17 GM PO (12:35)
[2019-05-24] MEDS ORDERED: AUGMENTIN 875-1 EACH PO (12:37)
[2019-05-24 15:46] VITALS: BP 143/72
--- NOTE | 2019-05-24 19:42 | NUR ---
Assumed pt care this am. VS have been stable. Diet of full liquids and medications are well tolerated. Went down for EGD but this was cancelled as per OR, discussion between Dr. Lincoln done. When pt came back , got upsert, informed Dr. Esqueda who spoke to the family. FC removerd pt was able to void using the urinal. POC followed no signs or verbalizatuons of distress have been noted. Pt is to transfer to 5N (rehab) 514 report given but room is not available will call back when room is ready informed the night nurse.
--- NOTE | 2019-05-24 22:08 | NUR ---
ASSUMED CARE OF PT AT 1900HRS. PT IS AO AND LETS NEEDS BE KNOWN. ASSESSMENT CHARTED. HS MEDS GIVEN. VSS AND NO S/S OF ACUTE DISTRESS. HANSON REMOVED TODAY. POST VOIF RESIDUAL AT 171ML. PT TRANSFERRED TO 5N AT 2200HRS.
--- NOTE | 2019-05-25 11:11 | HC ---
[facility] [place] [address] CONSULTATION Name: NATHALIE BROWN Room #: 451-P [facility] IN M.R.#: [id number] Admission: 05/16/19 Attend Phys: Greg Hendrickson MD Discharge: 05/24/19 Date of : [birth year] Report #: [id number] THIS REPORT FOR: //name// CC: Nikko Hendrickson DATE OF SERVICE: 05/21/2019 HISTORY OF PRESENT ILLNESS: The patient an 89-year-old white male admitted with increased shortness of breath and, mental status changes. He was noted to have sepsis with pneumonia, acute hypoxic hypercapnic respiratory failure, toxic metabolic encephalopathy. He is noted to have a partial small-bowel obstruction. NG tube was placed. He has had problems with sundowning and he actually pulled his NG tube. He is currently on PPN and is n.p.o. He has been treated for acute renal insufficiency. He is noted to have right mid lung pneumonia and there is concern regarding dysphagia. He also has a history of hypopituitarism. We are seeing him in rehabilitation medicine consultation. PAST MEDICAL HISTORY: Prior medical history includes back surgery in 2012, which was a laminectomy. History of hypertension, hypopituitarism, hypothyroidism. His past medical history also includes bladder cancer, chronic kidney disease, neuropathic pain. MEDICATIONS: Please see the full medication listing. ALLERGIES: No known drug allergies. HABITS: Former tobacco abuse, quit greater than a year ago. No history of alcohol abuse. SOCIAL HISTORY: Lives in an assisted living facility. Premorbid walker ambulator. was noted to find him on the floor, apparently had a recent stay at [facility] prior to coming here to [facility]. REVIEW OF SYSTEMS: No current complaints of chest pain, shortness of breath or abdominal discomfort. PHYSICAL EXAMINATION: GENERAL: An 89-year-old white male in no obvious distress. VITAL SIGNS: Last recorded temperature 97.6, pulse 72, respirations 16, blood pressure 184/100. NEUROLOGIC: The patient is alert. He will follow basic 1 step commands. He could tell me the place, had some difficulty with the year. HEENT: Facies appeared symmetric. EXTREMITIES: Functional range of motion of both upper extremities. Strength is [facility] [address] [place] [address] CONSULTATION Name: NATHALIE BROWN [place] Room #: 451-P [facility] IN M.R.#: [id number] Admission: 05/16/19 Attend Phys: Greg Hendrickson MD Discharge: 05/24/19 Date of : [birth year] Report #: [id number] grade 4- to 3+/5. DTRs are trace to 1. Lower extremities, no focal calf swelling, functional range of motion, strength is grade 3+ to 4-/5. He last worked in physical therapy at a min assist level with sit to stand. Gait was min assist 10 feet without an assistive device. He currently is on PPN. Nasal prong O2. Indwelling Diop catheter and is n.p.o. ASSESSMENT: An 89-year-old white male with the following problem list: 1. Toxic metabolic encephalopathy. He has had some owning. Restraints were removed yesterday. NG tube is currently out. 2. Ileus versus partial small-bowel obstruction. Currently on PPN and the patient continues n.p.o. 3. Sepsis. 4. Pneumonia, right mid lung infiltrate. 5. Acute hypercapnic hypoxemic respiratory failure. 6. Acute renal insufficiency. 7. Hypopituitarism. PLAN: Therapy evaluations are continuing. The patient continues n.p.o. and on PPN. At this point, we will need to follow along as he further medically stabilizes. Would anticipate that he should be a good [address] [place] [address] inpatient rehabilitation candidate as he further medically improves. We will be glad to follow along with you. <ELECTRONICALLY SIGNED> By: Abran Orozco MD 05/25/19 1111 [id number] Abran Orozco MD /nt
== END 2019-05-24 22:00 | DRG 871 ==
LOC: ER 06:51 → ICU 08:04 → 3W 08:04 → EROBS 08:04 → ICU 10:42 → 3W 05-18 19:43 → 4W 05-21 19:17
PROVIDERS: Emergency Medicine; Hospitalist; Internal Medicine; Internal Medicine Infectious Disease; Nurse Practitioner; Specialist; ADMIT Internal Medicine
DX: A41.9 Sepsis, unspecified organism (principal); J96.01 Acute respiratory failure with hypoxia; J69.0 Pneumonitis due to inhalation of food and vomit; G92 Toxic encephalopathy; J96.02 Acute respiratory failure with hypercapnia; N17.9 Acute kidney failure, unspecified; E23.0 Hypopituitarism; K56.609 Unspecified intestinal obstruction, unspecified as to partial versus complete obstruction; K92.2 Gastrointestinal hemorrhage, unspecified; G62.9 Polyneuropathy, unspecified; E03.9 Hypothyroidism, unspecified; C67.9 Malignant neoplasm of bladder, unspecified; I12.9 Hypertensive chronic kidney disease with stage 1 through stage 4 chronic kidney disease, or unspecified chronic kidney disease; E86.0 Dehydration; N18.9 Chronic kidney disease, unspecified; N40.0 Benign prostatic hyperplasia without lower urinary tract symptoms; K21.9 Gastro-esophageal reflux disease without esophagitis; I25.10 Atherosclerotic heart disease of native coronary artery without angina pectoris; R65.20 Severe sepsis without septic shock; E83.39 Other disorders of phosphorus metabolism; E83.42 Hypomagnesemia; E87.6 Hypokalemia; R31.9 Hematuria, unspecified; R94.5 Abnormal results of liver function studies; G31.84 Mild cognitive impairment of uncertain or unknown etiology; Z87.01 Personal history of pneumonia (recurrent); Z90.89 Acquired absence of other organs; Z79.82 Long term (current) use of aspirin; Z79.899 Other long term (current) drug therapy; Z87.891 Personal history of nicotine dependence; Z98.1 Arthrodesis status; Z23 Encounter for immunization
CPT/HCPCS: 10047; 10078; 10779; 10879

== ENCOUNTER 2019-05-24 15:51 | Inpatient (IN) | payer OTHER ==
[~2019-05-24] VITALS: Ht 193 cm; Wt 108.4 kg
[~2019-05-24 15:51] MED LIST changes: +AUGMENTIN 875-1 EACH PO; +BISACODYL10 MG RECTAL; +IPRAT-ALBUT 0.5-3 ML INH; +LOPRESSOR25 PO; +MIRALAX17 GM PO; +MUPIROCIN1 GM TOP; +NEURONTIN 300M300 M2 PO; +NORTRIPTYLINE H25 M3 PO; +NORVASC10 MG PO; +OLANZAPINE2.5 MG PO; +OYSTER SHELL 51 EAC1 PO; +PROTONIX40 M2 PO; +SENNA-TIME S T1 EACH PO
[2019-05-24 22:05] VITALS: BP 162/90
--- NOTE | 2019-05-25 00:29 | NUR ---
PT ADMITTED TO 5N THIS EVENING. PT ADMIT HX AND ASSESSMENT COMPLETED. VSS. SAT WNL ON 3L NC. PT VERY WEAK. UP TO BSC WITH 2 ASST/GAIT/WALKER. LOOSE STOOLS. URINAL AT BEDSIDE. FALL PRECAUTIONS IN PLACE. ASST WITH REPOSITION FOR COMFORT. PRIOR FLOOR RN GAVE ALL HS MEDS BEFORE BRINGING PT TO THE FLOOR. SLEEPING WELL AT THIS TIME. WILL CONTINUE TO MONITOR FREQUENTLY. BOTTOM RED. Z GUARD APPLIED.
[2019-05-25 05:08] LABS: HEMATOCRIT 44.6 % (42.0-52.0); HEMOGLOBIN 14.9 gm/dL (14.0-18.0); MCH 32.2 pg (26.0-34.0); MCHC 33.4 g/dL (28.0-37.0); MCV 96.4 fL (80.0-100.0); RBC 4.62 mil/uL (4.50-6.00); RDW 13.9 % (10.5-14.5); WBC 9.5 thou/uL (4.0-11.0)
[2019-05-25 05:21] LABS: CALCIUM 8.2 mg/dL (8.5-10.1); POTASSIUM 3.8 mmol/L (3.5-5.1)
[2019-05-25 08:00] VITALS: BP 156/78
--- NOTE | 2019-05-25 08:13 | NUR ---
PT GETTING UP ON HIS OWN. IMPULSIVE. FORGETTING TO CALL WHEN HE NEEDED TO GO TO THE BATHROOM.
--- NOTE | 2019-05-25 09:46 | NUR ---
chart review, pt up sitting on edge of bed, working with ot. noted pt on 02 per nc, " no home oxygen"/don. intro to cm, dcp, and team meeting. will cont following as needed for dc needs.
--- NOTE | 2019-05-25 13:44 | EKG ---
[address] [place] [address] ELECTROCARDIOGRAM REPORT Name: NATHALIE BROWN Room #: 514-P ADM IN M.R.#: [id number] Admission: 05/24/19 Attend Phys: Abran Orozco MD Discharge: Date of : [birth year] Report #: [id number] THIS REPORT FOR: //name// [facility] Test Date: 2019-05-25 Test Time: 08:26:24 Pat Name: NATHALIE BROWN Department: Room: 514 P Gender: M Powder Operator: Chery ROSE : 1930 Requested By: Abran Orozco Order Number: [id number] MD: Juanito Vu Measurements Intervals [place] Rate: 60 P: 66 TN: 161 QRS: -6 QRSD: 93 T: 6 QT: 424 QTc: 424 Interpretive Statements Sinus rhythm Abnormal R-wave progression, early transition Compared to ECG 05/16/2019 15:37:49 Sinus tachycardia no longer present First degree AV block no longer present Electronically Signed On 05-25-2019 13:43:49 DOOR PATCHER by Juanito Vu [email or web address] <ELECTRONICALLY SIGNED> By: Juanito Vu MD, [facility] 05/25/19 1343 0826 5 Juanito Vu MD, [facility] /EPI
--- NOTE | 2019-05-25 18:27 | NUR ---
ASSUMED CARE AT 0700, PT A&O X 3 BUT CAN BE IMPULSIVE AND FORGETFUL. VS STABLE, O2 ON 2L VIA NC. DENIES PAIN, MAX ASSIST X 1, TOLERATED THERAPY. MEDS WHOLE IN APPLESAUCE, TOLERATED WELL. PT WAS NPO FOR CT SCAN, PROCEDURE COMPLETE AWATING RESULTS. IV TO ESVIN, FLUSHES WELL. BG ACHS, MULTIPLE BM'S TODAY, VOIDED USING URINAL, CLEAR YELLOW URINE NOTED. BED IN LOWEST POSITION, CALL LIGHT WITHIN REACH, WILL CONTINUE TO MONITOR PER POC.
[2019-05-25 19:55] VITALS: BP 135/77
--- NOTE | 2019-05-26 05:00 | NUR ---
UP TO TOILET WITH WALKER AND GAITBELT, STANDBY ASSIST. ENCOURAGED TO CALL FOR ASSIST. HAS BEEN SETTING OFF BED ALARM IN SLOW PROCESS OF SITTING UP TOWARDS GETTING OUT OF BED. SMALL BM TWICE OVERNIGHT. Z-GUARD TO BUTTOCK, TURNED TO SIDE TWICE, INSISTS ON WEARING BRIEF HE DOES AT HOME, ESPECIALLY NOW WHILE HIS BOWELS ARE LOOSE.
[2019-05-26 06:44] LABS: ALBUMIN 2.6 g/dL (3.4-5.0); DIRECT BILIRUBIN 0.2 mg/dL (<0.1-0.2); TOTAL BILIRUBIN 1.1 mg/dL (<0.1-1.0); TOTAL PROTEIN 5.5 g/dL (6.4-8.2)
[2019-05-26 07:45] VITALS: BP 129/60
[2019-05-26 20:00] VITALS: BP 138/62
--- NOTE | 2019-05-27 04:55 | NUR ---
EPISODE OF INCONTINENT BOWEL AND BLADDER. Z-GUARD TO REDDENED BUTTOCKS. TURNING SELF. HS ACCUCHECK = 124. O2 2L OVERNIGHT ON SINCE 194 VS CAUGHT PATIENT WITH O2 SAT OF 88% ON ROOM AIR. PLEASANT AND REMEMBERING NAMES OF STAFF MEMBERS
[2019-05-27 08:20] VITALS: BP 154/81
--- NOTE | 2019-05-27 15:29 | NUR ---
ASSUMED CARE AT 0700, PT A&O X 4, NO ACUTE DISTRESS DURING SHIFT, AT BEDSIDE. VS STABLE, O2 ON 3L VIA NC. PT DENIES ANY PAIN, IV TO ESVIN STATLOCK. BG ACHS, TOLERATES MEDS WHOLE WITH APPLESAUCE. MAX ASSIST X 1 WITH TRANSFERS. LAST BM 05/27/19, VOIDS VIA URINAL, INCONTINENT AT TIMES. BED IN LOWEST POSITION, CALL LIGHT WITHIN REACH, WILL CONTINUE TO MONITOR PER POC.
[2019-05-27 19:34] VITALS: BP 142/66
--- NOTE | 2019-05-28 02:32 | NUR ---
assumed care at approx 1900 evening 05/27. pt lying in bed with head of bed elevated dozing off and on at change of shift. pt wearing brief incontinent of urine and also up to bathroom to void. up with 1 assist with walker. pt forgetful and impulsive at times. 02 at 2l per n/c. pt took hs meds with applesauce tolerating well. pt appears to be sleeping soundly between bathroom breaks. bed alarm on and call light in reach. will continue to monitor.
[2019-05-28 10:17] VITALS: BP 134/66
[2019-05-28 19:24] VITALS: BP 138/64
--- NOTE | 2019-05-28 19:54 | NUR ---
ASSUMED CARE AT 0700, REPORTS SLEPT GOOD LAST NIGHT. PT A&O X 4, LITTLE [place] DEE-NI'. AT BEDSIDE THIS EVENING. VS STABLE, O2 ON 2L VIA NC THIS AM. ENCOURAGED DEEP BREATH, WEAN OFF OXYGEN. SAT 97% ON RA. SOB WITH EXERTION AT TIME. WILL CONTINUE TO MONITOR. PT DENIES ANY PAIN, IV TO ESVIN STATLOCK. BG ACHS ON PREDNISONE. NOTIFIED LUCY IF PT CAN BE BLOOD SUGAR CHECK DAILY SINCE BS HAS BEEN STABLE. MEDS GIVEN WHOLE WITH APPLESAUCE. MIN ASSIST X 1 WITH A WALKER. PT HAS BEEN WALKING TO DINNING ROOM FOR MEALS. BUTTOCK LITTLE REDNESS INTACT, ENCOURAGED PT TO LAY ON SIDE WHEN IN BED. HAD LARGE FORMED BM 05/27/19, VOIDS VIA URINAL HAD 1100CC YELLOW URINE FOR THIS SHIFT. BS PRESENT. ON LAXATIVES. NOTED PT WILL HAVE XRAY ABED TO R/O ILEUS TOMORROW. GAVE REPORT TO NIGHT NURSE TO CONTINUE TO MONITOR. FALL PRECAUTION IN PLACE. CALL LIGHT WITHIN REACH.
--- NOTE | 2019-05-29 03:08 | NUR ---
ASSUMED CARE FROM DAY SHIFT PT AWAKE VISITING WITH AND FRIEND. DISUCUSS PLAN OF CARE AND VOICED UNDERSTANDING. PT VOIDED 600 ML OF CLEAR YELLOW UIRNE. PT INCONINTENT OF STOOL AND URINE DURING THE NIGHT, PT STATES HE WAS NOT AWARE. OTHERWISE PT RESTED WELL THROUGHOUT HOURLY ROUNDS. WILL CONITNUE WITH CURRENT PLAN OF CARE AND WILL REPORT CHANGES OR ABNORMAL FINDINGS.
[2019-05-29 06:25] LABS: ALBUMIN 2.6 g/dL (3.4-5.0); DIRECT BILIRUBIN 0.1 mg/dL (<0.1-0.2); TOTAL BILIRUBIN 0.6 mg/dL (<0.1-1.0); TOTAL PROTEIN 5.7 g/dL (6.4-8.2)
[2019-05-29 10:07] VITALS: BP 111/68
--- NOTE | 2019-05-29 10:26 | NUR ---
ASSUMED CARE AT 0700. PAITENT IS ALERT AND ORIENTEDX4. PATIENT UGALDE'S, MACHINIST SUPERVISOR ARE EQUAL. LUNGS ARE CLEAR. ABD IS SOFT WITH BSX4. PLAN KUB AT 1100 FOR F/U OF HIS ILEUS. UP TO THE DINING ROOM FOR MEALS. FALL AND SAFETY PROTOCOLS IN PLACE. DENIES ANY PAIN AT THIS TIME. CONTINUES TO PROGRESS SLOWLY TOWARDS D/C GOALS. WILL CONTINUE TO MONITER.
--- NOTE | 2019-05-29 10:29 | NUR ---
C/O BEING LIGHT HEADINESS. VS TAKEN , PATIENT IS STABLE. WILL CONTINUE TO MONITER.
--- NOTE | 2019-05-29 12:59 | NUR ---
team meeting, recommendation: having kub, had bm, sore in mouth with tx in place. check and see if family can assist with medication and bills, or pd for medication management. follow up with pcp prior to driving. dc 06/08/2019, ( pt, ot, nursing and st). no dme needs.
[2019-05-29 16:40] VITALS: BP 160/84
[2019-05-29 16:42] VITALS: BP 129/72
[2019-05-29 16:43] VITALS: BP 107/60
[2019-05-29 19:33] VITALS: BP 135/63
--- NOTE | 2019-05-30 03:38 | NUR ---
Assumed pt care @1915. pt a&ox4. pt ambulates with standby assist with a walker to the bathroom. pt can be incont/cont. kub done on 05/29 showed mild stool. bowel regimen in placed. pt had an xlarge soft bm overnight. pt is not very happy that he has to be here until 06/08. poc explained and pt expressed understanding. fall prec in place. no s/s of distress. will cont to monitor
[2019-05-30 07:45] VITALS: BP 141/75
[2019-05-30 10:50] VITALS: BP 197/69
--- NOTE | 2019-05-30 16:17 | H ---
[facility] [place] [address] HISTORY AND PHYSICAL Name: NATHALIE BROWN Room #: 514-P ADM IN M.R.#: [id number] Admission: 05/24/19 Attend Phys: Abran Orozco MD Discharge: Date of : [birth year] Report #: [id number] THIS REPORT FOR: //name// CC: Abran العلي DATE OF SERVICE: 05/25/2019 POST-ADMISSION PHYSICIAN EVALUATION HISTORY OF PRESENT ILLNESS: The patient is an 89-year-old male who has now been admitted for acute in-hospital inpatient rehabilitation. Please see the history and physical documentation. Agree with the documentation. Physical examination and assessment and plan as noted. He was noted to have a complex course with pneumonia, sepsis, and acute hypoxic hypercapnic respiratory failure, partial small-bowel obstruction, treated with NG tube. He has been treated conservatively with slow advancement of diet, TPN nutrition. He is scheduled for a CT enterography when he has defecated the residual contrast in his bowels. Gastroenterology has been closely following. He had problems with toxic metabolic encephalopathy, which has been documented overall is improving. He has had a significant decline from his premorbid status and has been admitted now for acute in-hospital inpatient rehabilitation. As far as past medical history, allergies, habits, please see the history and physical. MEDICATIONS: Please see the MAR. SOCIAL HISTORY: As noted. REVIEW OF SYSTEMS: No current complaints of abdominal discomfort. He had complained of some burning of his mid chest and over his left pectoral area. He noted this was a new symptom and did not related to the bowel issues that he has had. He noted it lasts just for a minute or two and was resolved. He has not had it before. He does not have a history of cardiac disease. No shortness of breath. No focal lower extremity discomfort. PHYSICAL EXAMINATION: GENERAL: Pleasant 89-year-old white male in no obvious distress. VITAL SIGNS: Temperature 97.9, pulse 66, respirations 20, blood pressure 162/90. He is alert. HEAD, EYES, EARS, NOSE, AND THROAT: Appeared to be benign. NEUROLOGIC: There is a definite delay to his responses, but he can follow 1-step commands without difficulty. Facies appeared symmetric. CHEST: Sounded clear to auscultation. CARDIOVASCULAR: Sounded regular rate and rhythm. [facility] [address] [place] [address] HISTORY AND PHYSICAL Name: NATHALIE BROWN [place]GL[place] Room #: 514-P [facility] IN M.R.#: [id number] Admission: 05/24/19 Attend Phys: Abran Orozco MD Discharge: Date of : [birth year] Report #: [id number] ABDOMEN: Appears somewhat distended. Bowel sounds positive. Soft. EXTREMITIES: He has functional range of motion of the upper extremity strength is grade 4-/5. DTRs are trace to 1. Lower extremities, no focal calf swelling, functional range of motion, strength is grade 4- to 3+/5. DTRs are trace to 1. ASSESSMENT: 1. Toxic metabolic encephalopathy. 2. Medical complexity with generalized debilitation. 3. Chest and left pectoral area burning. This appears to be related to his GI symptomatology. I did check an EKG, which appeared negative and have ordered a troponin with results pending. 4. Partial small-bowel obstruction. 5. Sepsis with pneumonia. 6. Dysphagia. 7. Acute hypercapnic hypoxemic respiratory failure. 8. Renal insufficiency. 9. Hypopituitarism. PLAN: The patient has been admitted for acute in-hospital inpatient rehabilitation. From a postadmission physician evaluation perspective, there are no relevant changes since the preadmission screening. Please see the above review of prior and current medical and functional conditions and comorbidities. Please see the patient's previous and current functional status. As far as risk of complications, the patient has multiple medical comorbidities as noted above. Initial plan of care involves the interdisciplinary acute inpatient rehabilitation program. Measurable functional goals would be for the patient to become modified independent with transfers, mobility, ADLs, cognition, so he can hopefully return back to his prior living situation. Prognosis is reasonably good with estimated length of stay probably at least 10 days to 2 weeks. Potential barriers would include his multiple medical comorbidities and decreased functional status. The patient meets diagnostic criteria for an acute in-hospital inpatient rehabilitation stay. He meets medical necessity criteria. He does have the tolerance for therapies and has appropriate discharge goals back to the home setting. <ELECTRONICALLY SIGNED> By: Abran Orozco MD 05/30/19 1617 0949 1143 Abran Orozco MD /[facility]
--- NOTE | 2019-05-30 18:47 | NUR ---
ASSUMED CARE AT 0700, PT A&O X 4, NO ACUTE DISTRESS NOTED. VS STABLE, O2 ON 2L VIA NC. NO IV ACCESS, PT DENIES ANY PAIN OR DISCOMFORT. TOLERATED THERAPY TODAY. BG AC AND HS. TAKES MEDS WHOLE WITH APPLESAUCE, LAST BM TODAY, VOIDS WITH URINAL AND USES RESTROOM. BED IN LOWEST POSITION, CALL LIGHT WITHIN REACH, WILL CONTINUE TO MONITOR PER POC.
[2019-05-30 19:29] VITALS: BP 159/79
--- NOTE | 2019-05-31 00:01 | NUR ---
UP TO BATHROOM TO BRUSH TEETH AT SINK. HAS USED URINAL AT BEDSIDE 3 TIMES THIS SHIFT. TURNING SELF SIDE TO SIDE IN BED. BUTTOCKS LESS REDDENED THAN EARLIER THIS WEEK. USING SWISH AND SPIT MEDICINE TO SORE RIGHT LIP AND ALSO USES A FEW ICE CHIPS TO NUMB IT
[2019-05-31 09:06] VITALS: BP 125/65
--- NOTE | 2019-05-31 14:40 | NUR ---
ASSUMED CARE AT 0700, PT A&O X 4, NO ACUTE DISTRESS DURING SHIFT. VS STABLE, O2 ON 2L VIA NC. MOD ASSIST X 1. PT DENIES PAIN OR DISCOMFORT. AT BEDSIDE. NO IV ACCESS, TOLERATES MEDS WHOLE WITH APPLESAUCE. TOLERATED THERAPY WELL. ZGUARD FOR SACRAL REDNESS. CXR AND KUP SCHEDULED FOR 06/01/2019. NO BM REPORTED, USES URINAL AND BR. BED IN LOWEST POSITION, CALL LIGHT WITHIN REACH, WILL CONTINUE TO MONITOR PER POC.
[2019-05-31 20:00] VITALS: BP 132/76
--- NOTE | 2019-06-01 01:26 | NUR ---
PT ASSESSMENT COMPLETED AND VSS. MEDS GIVEN ORDERED AND WELL TOLERATED. FALL PRECAUTIONS IN PLACE. ASST WITH REPOSITION FOR COMFORT. VOIDING MODERATE AMOUNT PER URINAL. SLEEPING WELL. DENIES NEEES. WILL CONTINUE TO MONITOR FREQUENTLY.
[2019-06-01 09:00] VITALS: BP 146/80
--- NOTE | 2019-06-01 11:48 | NUR ---
ASSUMED CARE AT 0700, REPORTS DIDN'T SLEEP WELL LAST NIGHT. NOTIFIED LUCY AND OBTAINED ORDER FOR MELATONIN. PT A&O X 4, ABLE TO VOICE HIS NEEDS. VS STABLE ON RA. MOD ASSIST X 1 WITH GB AND WALKER. PT DENIES PAIN OR DISCOMFORT. MEDS WHOLE WITH APPLESAUCE. TOLERATED THERAPY WELL. SACRAL REDNESS IS CLEAR NOW. CXR AND KUB THIS AM.KUB SHOWS PERSISTENT LARGE AMOUNT OF CONTRAST THROUGHOUT THE COLON. ENCOURAGED PT TO DRINK MORE FLUID AND ENCOURAGED PT TO TAKE BISACODYL ORDERED. WILL CONTINUE TO MONITOR. HAD MODERATE SOFT UNFORMED BM THIS AM. USES URINAL AND BR. FALL PRECAUTION IN PLACE.BED IN LOWEST POSITION, CALL LIGHT WITHIN REACH, WILL CONTINUE TO MONITOR PER POC.
[2019-06-01 20:00] VITALS: BP 151/84
--- NOTE | 2019-06-02 02:30 | NUR ---
MIRALAX GIVEN TO ENCOURAGE FURTHER CLEARING OF CONTRAST. USING URINAL AND DRINKING MORE FLUIDS ENCOURAGED. TOLERATING MEDS WITH APPLESAUCE. TURINING SELF TO SIDE
[2019-06-02 04:29] LABS: ALBUMIN 2.7 g/dL (3.4-5.0); CALCIUM 8.6 mg/dL (8.5-10.1); CREATININE 1.2 mg/dL (0.7-1.3); MAGNESIUM 1.8 mg/dL (1.8-2.4); POTASSIUM 3.8 mmol/L (3.5-5.1); TOTAL BILIRUBIN 0.4 mg/dL (<0.1-1.0); TOTAL PROTEIN 5.9 g/dL (6.4-8.2)
[2019-06-02 04:42] LABS: ABSOLUTE NEUTROPHILS 4.6 thou/uL (1.4-8.2); EOSINOPHILS 3.2 % (0.0-3.0); HEMATOCRIT 38.7 % (42.0-52.0); HEMOGLOBIN 12.9 gm/dL (14.0-18.0); LYMPHOCYTES 17.9 % (24.0-44.0); MCHC 33.3 g/dL (28.0-37.0); MONOCYTES 9.7 % (1.0-8.0); PLATELET COUNT 231 thou/uL (150-400); POLYS 68.2 % (36.0-66.0); RBC 4.03 mil/uL (4.50-6.00); RDW 13.9 % (10.5-14.5); WBC 6.8 thou/uL (4.0-11.0)
[2019-06-02 07:46] VITALS: BP 136/75
--- NOTE | 2019-06-02 11:11 | NUR ---
ASSUMED CARE AT 0700, REPORTS DIDN'T SLEEP WELL LAST NIGHT EVEN TOOK MELATONIN LAST NIGHT. PT A&O X 4, ABLE TO VOICE HIS NEEDS. VS STABLE ON RA. MOD ASSIST X 1 WITH GB AND WALKER. PT DENIES PAIN OR DISCOMFORT. MEDS WHOLE WITH APPLESAUCE. TOLERATED THERAPY WELL. ENCOURAGED PT TO DRINK MORE FLUID. BISACODYL SUPPOSITORY, AND ALL LAXATIVES GIVEN ORDERED. HAD MODERATE SOFT FORMED BM THIS AM. HAS GOOD APPETITE. RECEIVED HOLY COMMUNION THIS AM BY VOLUNTEER. CONTENT AND PLEASANT. USES URINAL AT BEDSIDE. RESTING IN BED BETWEEN THERAPY. FALL PRECAUTION IN PLACE.BED IN LOWEST POSITION, CALL LIGHT WITHIN REACH, WILL CONTINUE TO MONITOR PER POC.
[2019-06-02 19:34] VITALS: BP 137/71
--- NOTE | 2019-06-03 04:08 | NUR ---
TURNING SELF IN BED, USUALLY TO HIS LEFT. DRINKING MIRALAX AND FLUIDS, TAKING DULCOLAX SUPPOSITORY DAILY IN ORDER TO EVACUATE BOWELS AND COTRAST THAT REMAINS IN THEM. TOLERATING PILLS WHOLE IN APPLESAUCE. VISITORS EARLY IN SHIFT
[2019-06-03 09:47] VITALS: BP 130/77
--- NOTE | 2019-06-03 18:46 | NUR ---
ASSUMED CARE AT 0700, PT A&O X 4, NO ACUTE DISTRESS DURING SHIFT. VS STABLE, 02 ON RA; 2L PRN. PT DENIES PAIN OR DISCOMFORT. NO IV ACCESS, PT MIN ASSIST X 1 WITH WALKER. TOLERATES MEDS WHOLE WITH APPLESAUCE. NO BM THIS SHIFT. BED IN LOWEST POSITION, CALL LIGHT WITHIN REACH, WILL CONTINUE TO MONITOR PER POC.
[2019-06-03 19:57] VITALS: BP 138/73
--- NOTE | 2019-06-04 00:52 | NUR ---
PT ALERT AND ORIENTED X 4 IN EVENING. CONFUSED AT TIMES DURING THE NIGHT. WANTED TO GET UP AND GET DRESSED. PT TOOK HS MEDS IN APPLESAUCE WITHOUT DIFFICULTY. PT HAD DULCOLAX SUPP AT HS WITH GOOD RESULTS. PT DENIES PAIN OR DISCOMFORT. BED ALARM ON FOR SAFETY. PT CHECKED ON HOURLY ROUNDS.
[2019-06-04 08:20] VITALS: BP 129/75
[2019-06-04 10:29] VITALS: BP 144/76
--- NOTE | 2019-06-04 18:26 | HC ---
[facility] [place] [address] CONSULTATION Name: NATHALIE BROWN Room #: 514-P [facility] IN M.R.#: [id number] Admission: 05/24/19 Attend Phys: Abran Orozco MD Discharge: Date of : [birth year] Report #: [id number] THIS REPORT FOR: //name// CC: Abran العلي DATE OF SERVICE: 05/27/2019 NEUROBEHAVIORAL STATUS EXAMINATION AGE: 89. ATTENDING PHYSICIAN: Abran Orozco M.D. CHURCH WORKER: Jordon Hernandez, PhD. CLINICAL PRESENTATION: The patient is an 89-year-old male admitted to the rehabilitation unit at [facility] for a comprehensive inpatient rehabilitation program to improve functional mobility, activities of daily living and self-care and mental status secondary to deficits from a toxic metabolic encephalopathy. He was living with his in an assisted living apartment when she found him on the floor; 911 was called and he was brought into the hospital for evaluation and treatment. The patient was noted to have pneumonia, sepsis, acute hypoxic hypercapnic respiratory failure and a partial small bowel obstruction. He was initially treated with an NG tube. His assessment on admission to the rehabilitation unit included toxic metabolic encephalopathy, medical complexity with generalized debilitation, chest and left pectoral area burning, partial small bowel obstruction, sepsis with pneumonia, dysphagia, acute hypercapnic hypoxic respiratory failure, renal insufficiency and hypopituitarism. A complete description of his medical condition and history along with medications can be found in his medical record. Neuropsychological consultation was requested to provide assistance in the assessment of cognitive and emotional status and to provide recommendations and services. Prior to this most recent admission, the patient had been living with his in an assisted living apartment. He is reported to have been independent with instrumental activities of daily living including driving. He is a high school graduate with 2 years of college. 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 The patient has three children. TECHNIQUES UTILIZED: Clinical interview, review of medical records, staff consultation and behavioral observation, mini mental status exam 2 standard version, clock drawing, verbal fluency assessment (letter and category) and [facility] [address] [place] [address] CONSULTATION Name: NATHALIE BROWN Room #: 514-P [facility] IN M.R.#: [id number] Admission: 05/24/19 Attend Phys: Abran Orozco MD Discharge: Date of : [birth year] Report #: [id number] family interview -- . EXAMINATION FINDINGS: The patient was alert and cooperative with the assessment. He accurately described the reason for his hospitalization. However, he does have an amnestic episode that preceded his initial admission to the hospital. He was aware of having had sepsis and pneumonia. He does not present with an aphasia. There are no obvious auditory or visual hallucinations. He does not present with a thought disorder. His symptoms are reported to include variability in sleep. He does not indicate having difficulty in cognition. His performance on the MMSE 2 brief version is within normal limits with a raw score of 14/16. He has 3/3 for initial registration, 4/5 for orientation to time, 5/[address] and 2/3 for immediate recall of 3 items after a brief time delay and distraction. Performance on the MMSE 2 standard version is within normal limits with a raw score of 25/30 and a T score of 44, which is at the 27th percentile. The patient was 3/5 for serial sevens, 2/2 for naming, 1/1 for repetition, 3/3 for auditory comprehension. He could read and follow a single command and write a sentence. He was unable to accurately copy a simple geometric design. Clock drawing was generally within normal limits. Letter fluency was in the borderline range with a raw score of 10, T score of 30, percentile rank of 2. Category fluency was at the 2nd percentile with a raw score of 18 and a T score of 29. Overall, total fluency was extremely low with a raw score of 28, T score of 26, percentile rank of 1. The patient is presenting with difficulty in attention and sustained concentration, verbal fluency deficits also suggest impairment in executive functioning. DIAGNOSTIC IMPRESSION: Mild neurocognitive disorder, unspecified, without behavior disorder. RECOMMENDATIONS: The patient may benefit from a more thorough neuropsychological evaluation upon return home. Variability in cognitive functioning would require increased assistance in the management of medication, finances and nutrition. Assistance in the management of medication is likely to be available through his assisted living placement. Driving should be discontinued upon further evaluation. He does not report anxiety or depression. However, variability in sleep is noted. [facility] [address] [place] [address] CONSULTATION Name: NATHALIE BROWN Room #: 514-P [facility] IN M.R.#: [id number] Admission: 05/24/19 Attend Phys: Abran Orozco MD Discharge: Date of : [birth year] Report #: [id number] Thank you very much for allowing me to provide the consultation on this patient. <ELECTRONICALLY SIGNED> By: Jordon Hernandez, PhD 06/04/19 1826 1250 [id number] Jordon Hernandez, PhD /nt
--- NOTE | 2019-06-04 19:16 | NUR ---
ASSUMED CARE AT 0700, PT A&O X 4 MILD CONFUSION AT TIMES. VS STABLE, O2 ON RA. PT DENIES PAIN, NO IV ACCESS. TOLERATED THERAPY, STAND BY ASSIST X 1 WITH WALKER. MEDS WHOLE WITH APPLE SAUCE. BM X 1 THIS AFTERNOON, USES URINAL AND BR. BED IN LOWEST POSITION, CALL LIGHT WITHIN REACH, WILL CONTINUE TO MONITOR PER POC.
[2019-06-04 19:49] VITALS: BP 117/62
--- NOTE | 2019-06-05 01:36 | NUR ---
PT ALERT AND ORIENTED X 4. PT C/O PAIN IN HIS FEET. JESSICA HAMMOND NP NOTIFIED WITH ORDER RECEIVED FOR TYLENOL. MED GIVEN ORDERED AND PT SLEEPING UPON REASSESSMENT. PT TAKES MEDS IN APPLESAUCE WITHOUT DIFFICULTY. PT REFUSED DULCOLAX SUPP AT HS. BED ALARM ON FOR SAFETY. PT APPEARS TO BE SLEEPING ON HOURLY ROUNDS.
[2019-06-05 08:15] VITALS: BP 121/71
--- NOTE | 2019-06-05 14:47 | NUR ---
team meeting, recommendation dc 14th with remi barrera (pt, nursing and st). needs assistance with medication management. need to be cleared by pcp prior to driving. discussed with elicia " thanks be here right after lunch tomorrow"/elicia.
--- NOTE | 2019-06-05 14:52 | NUR ---
ASSESSMENT CHARTED. PT ALERT AND ORIENTED. VSS. DENIED HAVING PAIN OR DISCOMFORT. EVALUATED BY PT/OT. UP IN THE CHAIR. NO CONCERNS AT THIS TIME. PROGRESSING WELL TOWARDS DISCHARGE GOAL.
--- NOTE | 2019-06-05 14:55 | NUR ---
DISCHARGE PLANNING. ANTICIPATED DISCHARGE TO HOME TOMORROW, PER UNIT CM. DISCHARGE TO HOME WITH HOME HEALTH SERVICES. PATIENT REFERRAL FAXED TO [facility]. NURSING, PT, ST. CALL PLACED TO [facility]REAT [facility], INTAKE. SPOKE WITH CARLOS. CARLOS TO REVIEW AND NOTIFY SHA.
[2019-06-05 19:35] VITALS: BP 146/79
--- NOTE | 2019-06-06 03:22 | NUR ---
ASSUMED CARE AT APPROX 1900 EVENING 06/05. PT LYING IN BED WITH HEAD OF BED ELEVATED AT CHANGE OF SHIFT. PT PLEASANT AND COOPERATIVE STATED HE WAS LOOKING FORWARD TO BEING DISCHARGED. PT TOOK HS MEDS WITH APPLESAUCE TOLERATING WELL. PT VOIDING PER URINAL. PT APPEARS TO BE SLEEPING SOUNDLY WITH HOURLY ROUNDIG CHECKS. CALL LIGHT IN REACH. WILL CONTINUE TO MONITOR.
[2019-06-06] MEDS ORDERED: MIRALAX17 GM PO (08:25)
[2019-06-06] MEDS ORDERED: TYLENOL EXTRA500 MG PO (08:25)
[2019-06-06] MEDS ORDERED: PROTONIX40 M2 PO (08:25)
[2019-06-06] MEDS ORDERED: LOPRESSOR25 PO (08:27)
[2019-06-06] MEDS ORDERED: PROAIR HFA8.5 GM INH (08:27)
[2019-06-06] MEDS ORDERED: OLANZAPINE2.5 MG PO (08:27)
[2019-06-06] MEDS ORDERED: NORVASC10 MG PO (08:27)
[2019-06-06 09:00] VITALS: BP 109/67
[2019-06-06 10:00] VITALS: BP 109/67
[2019-06-06 12:43] VITALS: BP 109/67
--- NOTE | 2019-06-06 15:15 | PLAN ---
[facility] [place] [address] REHAB UNIT PLAN OF CARE Name: NATHALIE BROWN Room #: 514-P DIS IN M.R.#: [id number] Admission: 05/24/19 Attend Phys: Abran Orozco MD Discharge: 06/06/19 Date of : [birth year] Report #: [id number] THIS REPORT FOR: //name// CC: Abran العلي DATE OF SERVICE: 05/26/2019 PROGRESS NOTE/OVERALL PLAN OF CARE SUBJECTIVE: The patient was seen back in followup. Last recorded temperature 36.3, pulse 59, respirations 20, blood pressure 135/77. The patient is in no distress. He was seen earlier. He did undergo the CT, limited study, which did show the extensive contrast limiting evaluation of the bowel. He has been followed closely by multiple specialists with Infectious Disease involved as well as surgery. Gastroenterology is assisting. He does have a toxic metabolic encephalopathy and is being seen by speech therapy with [id number] cognitive deficits and moderate memory deficits. As far as his swallowing, he has been on a liquid diet. He is working in therapies. Transfers are mod assist. Gait min assist 110 feet front-wheeled walker. In occupational therapy, lower body dressing is max assist. Nursing has been monitoring his skin, utilizing Z guard. He can tend to be somewhat impulsive and forgetful and we are utilizing frequent safety cues for him. He had a number of BMs yesterday. Does not appear in any distress. ASSESSMENT: 1. Toxic metabolic encephalopathy. 2. Medical complexity with generalized debilitation. 3. Partial small-bowel obstruction. 4. Sepsis with pneumonia. 5. Acute hypercapnic hypoxemic respiratory failure. 6. Acute renal insufficiency. 7. Hypopituitarism. 8. Electrolyte abnormalities. PLAN: The overall plan of care is based on the preadmission screen, post-admission physician evaluation, and information garnered from therapy assessments. 1. Estimated length of stay probably at least 10 days to 2 weeks and likely longer. 2. Medical prognosis is reasonably good. 3. Anticipated interventions includes the interdisciplinary acute inpatient rehabilitation program. 4. Anticipated functional outcomes would be for the patient to become modified independent with transfers, mobility, and ADLs as well as improve overall cognition, so that he can return back to the home setting. [address] [address] REHAB UNIT PLAN OF CARE Name: NATHALIE BROWN Room #: 514-P DIS IN M.R.#: [id number] Admission: 05/24/19 Attend Phys: Abran Orozco MD Discharge: 06/06/19 Date of : [birth year] Report #: [id number] 5. Discharge destination would be back to the home setting where he lives with his . 6. Expected therapy by discipline includes PT, OT, and speech 1 hour per day each 5 days a week throughout the duration of the acute inpatient rehabilitation stay. <ELECTRONICALLY SIGNED> By: Abran Orozco MD 06/06/19 1515 1007 1448 Abran Orozco MD /AVERY
--- NOTE | 2019-06-06 19:59 | NUR ---
PT A&O X 4 STABLE VS, OM RA. LAST BM 06/06/19, USES URINAL AND BR. PT DISCHARGED TO HOME WITH HH AT 1320. DISCHARGE ORDERS AND EDUCATION DISCUSSED WITH PT AND DAUGHTER IN LAW WHO WAS TAKING PT HOME. PT TRANSPORTED TO [facility]C VIA TRANSPORT SERVICES, LEFT WITH FAMILY TO HOME.
== END 2019-06-06 13:35 | disposition home health service (06) | DRG 91 ==
LOC: ENTRNSPT 06-06 13:24 → EDTRNSPTSTS 06-06 13:26
PROVIDERS: Nurse Practitioner; Nurse Practitioner Family; ADMIT Physical Medicine & Rehabilitation
DX: G92 Toxic encephalopathy (principal); A41.9 Sepsis, unspecified organism; J18.9 Pneumonia, unspecified organism; J96.22 Acute and chronic respiratory failure with hypercapnia; J96.21 Acute and chronic respiratory failure with hypoxia; N17.9 Acute kidney failure, unspecified; K56.600 Partial intestinal obstruction, unspecified as to cause; E23.0 Hypopituitarism; K92.0 Hematemesis; K91.72 Accidental puncture and laceration of a digestive system organ or structure during other procedure; I10 Essential (primary) hypertension; R53.81 Other malaise; E78.5 Hyperlipidemia, unspecified; E03.9 Hypothyroidism, unspecified; R13.10 Dysphagia, unspecified; E87.8 Other disorders of electrolyte and fluid balance, not elsewhere classified; G31.84 Mild cognitive impairment of uncertain or unknown etiology; K76.0 Fatty (change of) liver, not elsewhere classified; G47.00 Insomnia, unspecified; E83.39 Other disorders of phosphorus metabolism; E83.42 Hypomagnesemia; Y65.8 Other specified misadventures during surgical and medical care; E87.6 Hypokalemia; K75.9 Inflammatory liver disease, unspecified; Z87.891 Personal history of nicotine dependence; Z79.899 Other long term (current) drug therapy; Z79.82 Long term (current) use of aspirin; Z85.51 Personal history of malignant neoplasm of bladder; Y92.89 Other specified places as the place of occurrence of the external cause
CPT/HCPCS: 10112

== ENCOUNTER 2019-07-03 07:42 | Inpatient (IN) | payer OTHER ==
[~2019-07-03] VITALS: Ht 190.5 cm; Wt 98.8 kg
[2019-07-03] VITALS (52 sets, daily range): BP systolic 59–117; BP diastolic 27–78
[~2019-07-03 07:42] MED LIST changes: +PROAIR HFA8.5 GM INH; +TYLENOL EXTRA500 MG PO
[2019-07-03 08:01] LABS: BE(vivo) -10.2 mmol/L (-2 to +3); HCO3 18.7 mmol/L (22.0-26.0); PCO2 54.1 mmHg (35.0-45.0); PO2 337.9 mmHg (80.0-100.0); sO2 99.6 % (92.0-98.0)
[2019-07-03 08:02] LABS: pH 7.157 (7.360-7.450)
[2019-07-03 08:07] LABS: ABSOLUTE NEUTROPHILS 8.3 thou/uL (1.4-8.2); EOSINOPHILS 1.1 % (0.0-3.0); HEMATOCRIT 39.9 % (42.0-52.0); HEMOGLOBIN 12.7 gm/dL (14.0-18.0); LYMPHOCYTES 26.2 % (24.0-44.0); MCH 31.1 pg (26.0-34.0); MCHC 31.9 g/dL (28.0-37.0); MCV 97.4 fL (80.0-100.0); MONOCYTES 6.4 % (1.0-8.0); PLATELET COUNT 187 thou/uL (150-400); POLYS 65.3 % (36.0-66.0); RDW 13.7 % (10.5-14.5); WBC 12.8 thou/uL (4.0-11.0)
[2019-07-03 08:17] LABS: ANION GAP 12 mmol/L (7-16); BUN 29 mg/dL (7-18); CALCIUM 7.9 mg/dL (8.5-10.1); CHLORIDE 104 mmol/L (98-107); CO2 27 mmol/L (21-32); CREATININE 2.1 mg/dL (0.7-1.3); GLUCOSE 307 mg/dL (74-106); POTASSIUM 3.8 mmol/L (3.5-5.1); SODIUM 143 mmol/L (136-145)
[2019-07-03 08:24] LABS: INR 1.1; PROTIME 10.8 Seconds (9.3-11.4)
[2019-07-03] MEDS ORDERED: FLOMAX0.4 MG PO (08:25)
[2019-07-03] MEDS ORDERED: UNICOMPLEX M TA1 TA1 PO (08:25)
[2019-07-03] MEDS ORDERED: SIMVASTATIN80 MG PO (08:26)
[2019-07-03] MEDS ORDERED: MOBIC7.5 MG PO (08:26)
[2019-07-03 08:27] LABS: ALBUMIN 2.8 g/dL (3.4-5.0); MAGNESIUM 2.5 mg/dL (1.8-2.4); SGOT 41 U/L (15-37); SGPT 35 U/L (30-65); TOTAL BILIRUBIN 0.7 mg/dL (<0.1-1.0); TOTAL PROTEIN 5.7 g/dL (6.4-8.2); TROPONIN-I <0.06 ng/mL (<0.06)
[2019-07-03 09:08] LABS: URINE BILIRUBIN NEGATIVE (Negative); URINE BLOOD 3+ (Negative); URINE CLARITY SL CLOUDY; URINE COLOR YELLOW; URINE GLUCOSE-RANDOM* TRACE (Negative); URINE KETONES NEGATIVE (Negative); URINE LEUKOCYTES-REFLEX 1+ (Negative); URINE NITRITE-REFLEX NEGATIVE (Negative); URINE PROTEIN (DIPSTICK) 3+ (Negative); URINE SPECIFIC GRAVITY 1.025 (1.005-1.035)
[2019-07-03 09:32] LABS: MUCUS 4-6 Moderate strn/LPF (None Seen); SQUAMOUS >10 Many /LPF (0-3)
[2019-07-03 09:33] LABS: HYALINE CASTS 0-3 Few /LPF (None Seen)
[2019-07-03 09:34] LABS: BACTERIA-REFLEX >30 Many /HPF (None Seen); URINE WBC-REFLEX 6-15 Few /HPF (0-5); WBC CLUMPS Occasional (None Seen)
[2019-07-03 09:35] LABS: CRYSTALS None Seen /LPF (None Seen)
--- NOTE | 2019-07-03 11:50 | NUR ---
PT arrived to unit from ED via bed. PT was soiled with stool and was cleaned then a FMS was inserted. Liquid brown stool with mucous was noted and a CDIFF sample was sent to lab. PT was placed on contact isolation as a precaution. 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 Hypothermia was initiated. PT appeared to tolerate it well with no shivering noted. However PT was noted to have a full body twitch that the ED nurse noted upon arrival to [facility]. Fall precautions are in place. Nurse will continue to monitor.
[2019-07-03 12:11] LABS: BE(vivo) -6.1 mmol/L (-2 to +3); PCO2 47.6 mmHg (35.0-45.0); PO2 141.1 mmHg (80.0-100.0); sO2 98.4 % (92.0-98.0)
[2019-07-03 12:12] LABS: pH 7.263 (7.360-7.450)
[2019-07-03 14:11] LABS: ABSOLUTE NEUTROPHILS 8.6 thou/uL (1.4-8.2); BASOPHILS 0.4 % (0.0-2.0); EOSINOPHILS 0.4 % (0.0-3.0); HEMATOCRIT 34.4 % (42.0-52.0); HEMOGLOBIN 11.3 gm/dL (14.0-18.0); LYMPHOCYTES 8.7 % (24.0-44.0); MCV 97.2 fL (80.0-100.0); MONOCYTES 4.7 % (1.0-8.0); PLATELET COUNT 149 thou/uL (150-400); POLYS 85.8 % (36.0-66.0); RBC 3.53 mil/uL (4.50-6.00); RDW 14.2 % (10.5-14.5)
[2019-07-03 14:22] LABS: D-DIMER 4.16 ug/mLFEU (0.19-0.50); FIBRINOGEN 194.9 mg/dL (210-360)
[2019-07-03 14:30] LABS: APTT 24.1 Seconds (24.5-32.8)
--- NOTE | 2019-07-03 14:30 | NUR ---
PT reached goal temperature of 33.0 celsius at 1430 via arctic sun. VSS. Nurse will continue to monitor.
[2019-07-03 15:04] LABS: CREATININE 1.3 mg/dL (0.7-1.3); MAGNESIUM 1.4 mg/dL (1.8-2.4); TROPONIN-I 0.11 ng/mL (<0.06)
[2019-07-03 15:08] LABS: CALCIUM 4.9 mg/dL (8.5-10.1); POTASSIUM 2.2 mmol/L (3.5-5.1)
--- NOTE | 2019-07-03 15:57 | 2DMMODE ---
[facility] [address] [place] [address] 2 D/M-MODE ECHOCARDIOGRAM Name: NATHALIE BROWN Room #: 236-P ADM IN M.R.#: [id number] Admission: 07/03/19 Attend Phys: Greg Hendrickson MD Discharge: Date of : [birth year]/12/[birth year] Report #: [id number] THIS REPORT FOR: cc: FAM - Family physician unknown FAM - Family physician unknown Shawn Moralez MD ~ APPROVED REPORT Study performed: 07/03/2019 13:41:17 EXAM: Comprehensive 2D, Doppler, and color-flow Echocardiogram Patient Location: ICU Room #: 236 Status: routine BSA: 2.22 HR: 72 bpm BP: 80/41 mmHg Rhythm: NSR Other Information Study Quality: Adequate Indications Hypertension/HDD S^P Cardiac arrest 2D Dimensions IVSd: 12.68 (7-11mm) LVOT Diam: 23.74 (18-24mm) LVDd: 42.64 mm PWd: 13.87 (7-11mm) Ascending Ao: 30.63 (22-36mm) LVDs: 28.95 (25-40mm) Aortic Root: 35.96 mm Aortic Valve AoV Peak Nayan.: 1.07 m/s AO Peak Gr.: 4.54 mmHg LVOT Max P.50 mmHg LVOT Max V: 0.94 m/s SARAH Vmax: 3.88 cm2 Mitral Valve E/A Ratio: 0.7 MV Decel. Time: 237.84 ms MV E Max Nayan.: 0.56 m/s MV A Nayan.: 0.83 m/s [facility] [address] [address] 2 D/M-MODE ECHOCARDIOGRAM Name: NATHALIE BROWN Room #: 236-P ADM IN [place]onay.#: [id number] Admission: 07/03/19 Attend Phys: Greg Hendrickson MD Discharge: Date of : 04/12/[birth year] Report #: [id number] MV PHT: 68.97 ms IVRT: 133.79 ms Pulmonary Valve PV Peak Nayan.: 1.00 m/s PV Peak Gr.: 4.01 mmHg Tricuspid Valve TR Peak Nayan.: 2.40 m/s TR Peak Gr.: 23.00 mmHg PA Pressure: 23.00 mmHg Left Ventricle The left ventricle is normal size. There is normal LV segmental wall motion. There is normal left ventricular wall thickness. The left ventricular systolic function is normal. The left ventricular ejection fraction is within the normal range. LVEF is 55-60%. Grade I - abnormal relaxation pattern. Right Ventricle The right ventricle is normal size. The right ventricular systolic function is normal. Atria The left atrium size is normal. The right atrium size is normal. Aortic Valve The aortic valve is normal in structure. No aortic regurgitation is present. There is no aortic valvular stenosis. Mitral Valve The mitral valve is normal in structure. There is no mitral valve regurgitation noted. No evidence of mitral valve stenosis. Tricuspid Valve The tricuspid valve is normal in structure. There is trace tricuspid regurgitation. Estimated PAP 23 mmHg plus the right atrial pressure. There is no pulmonary hypertension. Pulmonic Valve The pulmonary valve is normal in structure. There is no pulmonic valvular regurgitation. Great Vessels The aortic root is normal in size. The inferior vena cava is not well visualized. [facility] [address] [place] [address] 2 D/M-MODE ECHOCARDIOGRAM Name: NATHALIE BROWN [facility]: [facility] IN .R.#: [id number] Admission: 07/03/19 Attend Phys: Greg Hendrickson MD Discharge: Date of : [birth year] Report #: [id number] Pericardium There is no pericardial effusion. <Conclusion> The left ventricle is normal size. LVEF is 55-60%. The aortic valve is normal in structure. The mitral valve is normal in structure. The tricuspid valve is normal in structure. There is trace tricuspid regurgitation. Estimated PAP 23 mmHg plus the right atrial pressure. There is no pulmonary hypertension. The pulmonary valve is normal in structure. There is no pericardial effusion. <ELECTRONICALLY SIGNED> By: Shawn Moralez MD 07/03/19 1556 1556 1556 Shawn Moralez MD /INF
[2019-07-03 16:57] LABS: BE(vivo) -13.7 mmol/L (-2 to +3); HCO3 15.4 mmol/L (22.0-26.0); PCO2 48.5 mmHg (35.0-45.0); PO2 102.4 mmHg (80.0-100.0); pH 7.121 (7.360-7.450); sO2 95.6 % (92.0-98.0)
[2019-07-03 18:40] LABS: BE(vivo) -10.5 mmol/L (-2 to +3); HCO3 17.3 mmol/L (22.0-26.0); PCO2 45.4 mmHg (35.0-45.0); PO2 85.9 mmHg (80.0-100.0); pH 7.199 (7.360-7.450); sO2 94.3 % (92.0-98.0)
[2019-07-03 20:40] LABS: BE(vivo) -16.6 mmol/L (-2 to +3); HCO3 12.1 mmol/L (22.0-26.0); PCO2 38.8 mmHg (35.0-45.0); PO2 80.4 mmHg (80.0-100.0); pH 7.113 (7.360-7.450); sO2 91.6 % (92.0-98.0)
[2019-07-03 20:51] LABS: ABSOLUTE NEUTROPHILS 9.4 thou/uL (1.4-8.2); BASOPHILS 0.4 % (0.0-2.0); EOSINOPHILS 0.2 % (0.0-3.0); HEMATOCRIT 41.7 % (42.0-52.0); HEMOGLOBIN 13.4 gm/dL (14.0-18.0); MCH 31.4 pg (26.0-34.0); MCV 97.9 fL (80.0-100.0); MONOCYTES 6.7 % (1.0-8.0); PLATELET COUNT 187 thou/uL (150-400); POLYS 84.7 % (36.0-66.0); RBC 4.26 mil/uL (4.50-6.00); WBC 11.1 thou/uL (4.0-11.0)
[2019-07-03 21:07] LABS: MAGNESIUM 3.4 mg/dL (1.8-2.4); TROPONIN-I 0.16 ng/mL (<0.06)
[2019-07-03 21:12] LABS: CALCIUM 7.6 mg/dL (8.5-10.1); CREATININE 2.5 mg/dL (0.7-1.3); POTASSIUM 3.7 mmol/L (3.5-5.1)
[2019-07-04] VITALS (96 sets, daily range): BP systolic 87–128; BP diastolic 42–59
[2019-07-04 05:58] LABS: BE(vivo) -13.2 mmol/L (-2 to +3); HCO3 15.6 mmol/L (22.0-26.0); PCO2 46.5 mmHg (35.0-45.0); PO2 84.9 mmHg (80.0-100.0); sO2 93.2 % (92.0-98.0)
[2019-07-04 05:59] LABS: pH 7.143 (7.360-7.450)
--- NOTE | 2019-07-04 06:00 | NUR ---
ON HYPOTHERMIA PROTOCOL, IN COOLING PHASE THROUGHOUT THE NIGHT. PT GIVEN PARALYTIC X1 FOR SHIVERING. ON FENTANYL GTT. PT ON LEVO GTT TO MAINTAIN MAP 65-80, PER PROTOCOL. STILL NO PURPOSEFUL MOVEMENT, PT DOES INTERMITTENTLY HAVE SOME MYOCLONIC JERKING. WILL CONTINUE TO MONITOR.
[2019-07-04 07:18] LABS: ABSOLUTE NEUTROPHILS 7.4 thou/uL (1.4-8.2); BASOPHILS 0.3 % (0.0-2.0); EOSINOPHILS 0.1 % (0.0-3.0); HEMATOCRIT 44.5 % (42.0-52.0); HEMOGLOBIN 14.3 gm/dL (14.0-18.0); LYMPHOCYTES 6.5 % (24.0-44.0); MCH 31.3 pg (26.0-34.0); MCHC 32.1 g/dL (28.0-37.0); MCV 97.5 fL (80.0-100.0); MONOCYTES 6.7 % (1.0-8.0); PLATELET COUNT 201 thou/uL (150-400); POLYS 86.4 % (36.0-66.0); RBC 4.57 mil/uL (4.50-6.00); RDW 13.9 % (10.5-14.5); WBC 8.6 thou/uL (4.0-11.0)
[2019-07-04 07:45] LABS: CALCIUM 6.7 mg/dL (8.5-10.1); CREATININE 2.5 mg/dL (0.7-1.3); MAGNESIUM 2.4 mg/dL (1.8-2.4); TROPONIN-I 0.09 ng/mL (<0.06)
[2019-07-04 07:55] LABS: POTASSIUM 3.7 mmol/L (3.5-5.1)
[2019-07-04 08:43] LABS: BE(vivo) -8.9 mmol/L (-2 to +3); HCO3 19.4 mmol/L (22.0-26.0); PCO2 51.1 mmHg (35.0-45.0); PO2 86.3 mmHg (80.0-100.0); sO2 94.3 % (92.0-98.0)
[2019-07-04 08:44] LABS: pH 7.198 (7.360-7.450)
--- NOTE | 2019-07-04 12:34 | EKG ---
[facility] [place] [address] ELECTROCARDIOGRAM REPORT Name: NATHALIE BROWN Room #: 236-P ADM IN M.R.#: [id number] Admission: 07/03/19 Attend Phys: Greg Hendrickson MD Discharge: Date of : [birth year]12/[birth year] Report #: [id number] THIS REPORT FOR: cc: GUSTAVO - Family physician unknown FAM - Family physician unknown Juanito Vu MD [facility] ~ THIS REPORT FOR: //name// [facility] ED Test Date: 2019-07-03 Test Time: 07:58:49 Pat Name: NATHALIE BROWN Department: Room: Gender: Manager [facility] : 1930 Requested By: Riddhi Sy Order Number: [id number] MD: Juanito uV Measurements Intervals [place] Rate: 100 P: -44 VT: 172 QRS: 26 QRSD: 97 T: -17 QT: 353 QTc: 456 Interpretive Statements Sinus tachycardia Multiple ventricular premature complexes Borderline repolarization abnormality Baseline wander in lead(s) V3 Compared to ECG 05/25/2019 08:26:24 Ventricular premature complex(es) now present Electronically Signed On 07-03-2019 9:20:58 SCHOOL LIBRARY MEDIA SPECIALIST by Juanito Vu [email or web address] <ELECTRONICALLY SIGNED> By: Juanito Vu MD, [facility] 07/03/19 0920 0758 0758 Juanito Vu MD, [facility] /EPI
[2019-07-04 12:50] LABS: BE(vivo) -8.7 mmol/L (-2 to +3); HCO3 19.1 mmol/L (22.0-26.0); PO2 82.5 mmHg (80.0-100.0); sO2 93.9 % (92.0-98.0)
[2019-07-04 12:51] LABS: pH 7.218 (7.360-7.450)
[2019-07-04 13:30] LABS: CREATININE 2.4 mg/dL (0.7-1.3); POTASSIUM 3.5 mmol/L (3.5-5.1)
--- NOTE | 2019-07-04 14:30 | NUR ---
REWARMING STARTED TODAY AT 1430 PER HYPOTHERMIA PROTOCOL. PT IS APPEARING TO TOLERATE IT WELL SO FAR. [facility] SUN IS NOW IN REWARMING MODE. CORE TEMP IS CURRENTLY 33.2 DEGREES CELSIUS AND WATER TEMP IS 32.7 DEGREES CELSIUS. NURSE WILL CONTINUE TO MONITOR.
[2019-07-04 17:14] LABS: BE(vivo) -4.8 mmol/L (-2 to +3); HCO3 21.9 mmol/L (22.0-26.0); PO2 86.6 mmHg (80.0-100.0); pH 7.287 (7.360-7.450); sO2 95.5 % (92.0-98.0)
[2019-07-04 17:30] LABS: CALCIUM 6.7 mg/dL (8.5-10.1); CREATININE 2.4 mg/dL (0.7-1.3); POTASSIUM 3.5 mmol/L (3.5-5.1)
[2019-07-04 22:02] LABS: BE(vivo) -3.9 mmol/L (-2 to +3); PCO2 42.7 mmHg (35.0-45.0); PO2 70.2 mmHg (80.0-100.0)
[2019-07-04 22:03] LABS: pH 7.329 (7.360-7.450)
[2019-07-04 22:20] LABS: CALCIUM 6.5 mg/dL (8.5-10.1); CREATININE 2.5 mg/dL (0.7-1.3); POTASSIUM 3.6 mmol/L (3.5-5.1)
[2019-07-05] VITALS (95 sets, daily range): BP systolic 82–124; BP diastolic 37–62
[2019-07-05 05:01] LABS: BE(vivo) -3.5 mmol/L (-2 to +3); PCO2 41.4 mmHg (35.0-45.0); PO2 79.8 mmHg (80.0-100.0); pH 7.344 (7.360-7.450); sO2 95.2 % (92.0-98.0)
[2019-07-05 05:39] LABS: HEMATOCRIT 40.4 % (42.0-52.0); HEMOGLOBIN 13.4 gm/dL (14.0-18.0); MCH 31.4 pg (26.0-34.0); MCHC 33.3 g/dL (28.0-37.0); MCV 94.2 fL (80.0-100.0); RBC 4.29 mil/uL (4.50-6.00); RDW 14.1 % (10.5-14.5); WBC 7.1 thou/uL (4.0-11.0)
[2019-07-05 05:49] LABS: CALCIUM 6.6 mg/dL (8.5-10.1); CREATININE 2.7 mg/dL (0.7-1.3); POTASSIUM 4.2 mmol/L (3.5-5.1)
--- NOTE | 2019-07-05 06:30 | NUR ---
PT REWARMED AT 2134 LAST NIGHT-NOW IN NORMOTHERMIA PHASE OF HYPOTHERMIA PROTOCOL. LEVO GTT TITRATED UP TO MAINTAIN A MAP > 60; YAYA GTT STARTED THIS MORNING. FENTANYL GTT TITRATED DOWN THIS MORNING, PT REMAINS UNRESPONSIVE. ABOUT 2129 LAST NIGHT, PT'S HEART RHYTHM BEGAN TO HAVE FREQUENT PVCs. DR. BOLAÑOS WAS NOTIFIED OF THIS WHEN CRITICAL RESULTS WERE CALLED. PT IS NOT PROGRESSING TOWARDS GOALS. WILL CONTINUE TO MONITOR.
--- NOTE | 2019-07-05 12:00 | NUR ---
pt and children at bedside, noted to be tearful. will let family have time a bedside. will cont following as needed for dc needs.
--- NOTE | 2019-07-05 12:00 | NUR ---
PATIENT NONRESPONSIVE TO ANY STIMULI, NOT ASSISTING VENT. FENTENYL WEANED OFF. AND FAMILY AT BEDSIDE, TEARFUL, UPDATED AND QUESTIONS ANSWERED. DR BOLAÑOS IN AND UPDATED THE FAMILY.
--- NOTE | 2019-07-05 15:01 | NUR ---
Patient admitted post cardiac arrest at home. Patient intubated and sedated in ICU. and family at bedside. Patient to have EEG and and family in process of making care decsions. Patient and live independently at [facility]. Rn to update Local Sales Manager. Casemt following.
--- NOTE | 2019-07-05 16:00 | NUR ---
BEDSIDE EEG COMPLETED. PATIENT INCONTIENT OF STOOL AND CLEANED UP.
--- NOTE | 2019-07-05 18:15 | NUR ---
PATIENT REMAINS UNRESPONSIVE, BLOOD GLUCOSE 61, D50 GIV[address] DR BOLAÑOS INFORMED OF BLOOD GLUCOSE AND URINE OUTPUT. ORDERS NOTED. FAMILY UPDATED AND REASSURANCE GIVEN.
[2019-07-06] VITALS (64 sets, daily range): BP systolic 54–130; BP diastolic 28–59
[2019-07-06 04:54] LABS: BE(vivo) -6.2 mmol/L (-2 to +3); HCO3 17.8 mmol/L (22.0-26.0); PCO2 30.7 mmHg (35.0-45.0); sO2 88.6 % (92.0-98.0)
[2019-07-06 05:04] LABS: HEMATOCRIT 37.9 % (42.0-52.0); HEMOGLOBIN 12.4 gm/dL (14.0-18.0); MCHC 32.8 g/dL (28.0-37.0); MCV 94.6 fL (80.0-100.0); RDW 14.6 % (10.5-14.5); WBC 7.2 thou/uL (4.0-11.0)
[2019-07-06 05:31] LABS: CALCIUM 6.1 mg/dL (8.5-10.1); CREATININE 3.1 mg/dL (0.7-1.3); POTASSIUM 4.7 mmol/L (3.5-5.1)
--- NOTE | 2019-07-06 06:15 | NUR ---
PT CONTINUES TO BE NONRESPONSIVE. PT DOES BREATH ABOVE SET RATE ON VENT, BUT DOES NOT RESPOND TO PAINFUL STIMULI AND DOES NOT HAVE ANY COUGH/GAG/CORNEA REFLEXES. EARLIER IN THE NIGHT, PT BEGAN TO REQUIRE MORE PRESSORS TO KEEP MAP > 60. PT ON LEVO AND YAYA GTTS AT THAT TIME. DR. BOLAÑOS NOTIFIED AND NS BOLUS ORDERED. HEART RHYTHM CONTINUED TO BE SINUS TACH WITH MANY PVCs UNTIL THIS MORNING, PT'S RATE INCREASED TO 150s AND BP BEGAN TO DROP, REQUIRING PRESSORS TO BE TITRATED UP. CARDIOLOGY CALLED AND NOTIFIED OF THESE CHANGES. DR. URBINA ORDERED CARDIZEM PROTOCOL. CARDIZEM GTT STARTED, BUT HR HAS NOT SHOWN MUCH IMPROVEMENT. PT'S TEMP HAS INCREASED AND COOLING MEASURES HAVE BEEN TAKEN. PT IS NOT PROGRESSING. WILL CONTINUE TO MONITOR.
--- NOTE | 2019-07-06 08:14 | EKG ---
[facility] [place] [address] ELECTROCARDIOGRAM REPORT Name: NATHALIE BROWN Room #: 236-P ADM IN M.R.#: [id number] Admission: 07/03/19 Attend Phys: Greg Hendrickson MD Discharge: Date of : [birth year]/12/[birth year] Report #: [id number] THIS REPORT FOR: cc: FAM - Family physician unknown FAM - Family physician unknown Juanito Vu MD [facility] THIS REPORT FOR: //name// [facility] Test Date: 2019-07-06 Test Time: 05:37:40 Pat Name: NATHALIE BROWN Department: Room: 236 P Gender: M Jockey'S Agent: pratik martinez : 1930 Requested By: Wendy Jones Order Number: [id number] MD: Juanito Vu Measurements Intervals [place] Rate: 153 P: -74 [place]: 112 QRS: -1 QRSD: 86 T: 116 QT: 235 QTc: 375 Interpretive Statements Supraventricular tachycardia Nonspecific T abnrm Compared to ECG 07/03/2019 07:58:49 SVT is now present Electronically Signed On 07-06-2019 8:13:33 MIGRATORY FARM HAND by Juanito Vu [email or web address] <ELECTRONICALLY SIGNED> By: Juanito Vu MD, [facility] 07/06/19 0813 0537 0537 Juanito Vu MD, [facility] /EPI
--- NOTE | 2019-07-06 08:16 | EKG ---
[facility] [place] [address] ELECTROCARDIOGRAM REPORT Name: NATHALIE BROWN Room #: 236-P ADM IN M.R.#: [id number] Admission: 07/03/19 Attend Phys: Greg Hendrickson MD Discharge: Date of : [birth year] Report #: [id number] THIS REPORT FOR: cc: FAM - Family physician unknown FAM - Family physician unknown Juanito Vu MD [facility] THIS REPORT FOR: //name// [facility] Test Date: 2019-07-06 Test Time: 08:12:28 Pat Name: NATHALIE BROWN Department: Room: 236 P Gender: M Senior Telecommunications Specialist: Chery ROES : 1930 Requested By: Fredy Velazquez Order Number: [id number] MD: Juanito Vu Measurements Intervals [place] Rate: 139 P: FL: QRS: -1 QRSD: 92 T: 91 QT: 259 QTc: 394 Interpretive Statements Supraventricular tachycardia Abnormal R-wave progression, early transition Nonspecific T abnrm, anterolateral leads Compared to ECG 07/03/2019 07:58:49 No significant change was found Electronically Signed On 07-06-2019 8:15:24 ASSEMBLY HAND by Juanito Vu [email or web address] <ELECTRONICALLY SIGNED> By: Juanito Vu MD, [facility] 07/06/19814 1 1 Juanito Vu MD, [facility] /EPI
--- NOTE | 2019-07-06 10:00 | NUR ---
PAATIENT FAMILY IN TO DISCUSS THE POC. CREWMAN MAIN BATTLE TANK IN FOR PRAYERS WITH THE FAMILY. AWAITING EEG RESULTS. DR TANG IN AND DISCUSSED PATIENT'S WISHES WITH THE FAMILY.
--- NOTE | 2019-07-06 12:30 | NUR ---
FAMILY APPEARING MORE ANXIOUS, GIBSON BY, DR BLACKWELL PAGED AND IN TO DISCUSS EEG WITH THE FAMILY BUT NO FINAL READING YET. DR TANG INFOMED OF THE FAMILIES DESIRE TO PROCEED WITH COMFORT CARE IF THE EEG IS CONCLUSIVE FOR NO QUALITY OF LIFE AND TO HONOR THE PARIENT'S DIRECTIVE. ORDERS NOTED
--- NOTE | 2019-07-06 13:00 | NUR ---
discussed during los, no anticipated dc over weekend. report from bedside nurse pt going to get eeg, then family might talk about goals of care. will cont following as needed for dc needs.
--- NOTE | 2019-07-06 15:08 | EEG ---
[facility] [place] [address] ELECTROENCEPHALOGRAM Name: NATHALIE BROWN Room #: 236-P [facility] IN M.R.#: [id number] Admission: 07/03/19 Attend Phys: Greg Hendrickson MD Discharge: Date of : [birth year] Report #: [id number] THIS REPORT FOR: //name// CC: FAM unknown Greg Way DATE OF SERVICE: 07/05/2019 This patient is being evaluated for hypoxic encephalopathy. EEG was done by placing the electrode by standard 10-20 system of electrode placement. Both referential and sequential montages were used for recording. Background activity in this patient's EEG is about 6-7 Hz and 15 microvolt. Photic stimulation is unremarkable. No active epileptiform activity was noticed. IMPRESSION: This patient's EEG appeared to be showing cortical activity. It may be too early in the course to prognosticate this patient. Sometimes similar finding can occur with alpha coma. We will suggest serial EEG to further evaluate this patient. <ELECTRONICALLY SIGNED> By: Frank Haq MD 07/06/19 1508 1811 1823 Frank Haq MD /nt
--- NOTE | 2019-07-06 16:30 | NUR ---
DR BLACKWELL IN AT APPROXIMATELY 1510 TO DISCUSS THE EEG RESULTS WITH THE FAMILY, WHO AGREE TO COMFORT CARE, PROCEDURE EXPLAINED TO FAMILY, GIBSON IN WITH FAMILY. PRESSORS TAPPERED OFF AND MORPHINE GIVEN PER ORDER. PATIENT EXTUBATED FAMILY BACK INTO THE ROOM. PATIENT PRONOUCED AT 1556, PLEASE REFER TO SHEET.
== END 2019-07-06 15:56 | DRG 871 ==
LOC: ER 07:42 → EROBS 09:38 → ICU 09:38
PROVIDERS: Emergency Medicine Emergency Medical Services; Internal Medicine Pulmonary Disease; ADMIT Internal Medicine
PROC: 5A1945Z Respiratory Ventilation, 24-96 Consecutive Hours (ICD-10-PCS; principal; 2019-07-03)
DX: A41.9 Sepsis, unspecified organism (principal); J96.01 Acute respiratory failure with hypoxia; J96.02 Acute respiratory failure with hypercapnia; R65.21 Severe sepsis with septic shock; N39.0 Urinary tract infection, site not specified; G93.1 Anoxic brain damage, not elsewhere classified; E23.0 Hypopituitarism; N17.9 Acute kidney failure, unspecified; E87.4 Mixed disorder of acid-base balance; I46.9 Cardiac arrest, cause unspecified; E03.9 Hypothyroidism, unspecified; Z87.01 Personal history of pneumonia (recurrent); Z98.1 Arthrodesis status; I10 Essential (primary) hypertension; Z79.899 Other long term (current) drug therapy; Z79.82 Long term (current) use of aspirin; Z79.2 Long term (current) use of antibiotics; Z87.891 Personal history of nicotine dependence; E86.0 Dehydration; C67.9 Malignant neoplasm of bladder, unspecified; I95.9 Hypotension, unspecified
CPT/HCPCS: 10078